=== PATIENT | female | born 2000 | race Caucasian/White ===

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

== ENCOUNTER 2018-02-13 19:09 | Inpatient (IN) | payer MEDICAID ==
[~2018-02-13] VITALS: Ht 157.5 cm; Wt 84.8 kg
[2018-02-13] MEDS ORDERED: D5 LR IV SOLUTION 1,000 ML IV ONE (19:11)
--- OUTSIDE RECORDS SUMMARY | 2018-02-13 19:13 | XMS REPORT ---
Author Author YOLANDE ESPINO [facility] Address [address] [place] [address] Care Team Providers Care Asbestos Wire Finisher Name Role Phone YOLANDE ESPINO Unavailable PROBLEMS Type Condition ICD9-CM Code TTU22-IV Code Onset Dates Condition Status SNOMED Code Problem Dysfunction of Eustachian tube 381.81 Active 57199252 Problem Unspecified otalgia 388.70 Active 99826499 Problem MENINGOCOCCAL DX V03.89 Active 30048375 Problem Other general medical examination for administrative purposes V70.3 Active 21273745 ALLERGIES No Information ENCOUNTERS Encounter Location Date Diagnosis [place] [id number] [place] [address] 64700- 3258 Feb, [facility] [id number] [place] [address] 73728- 4593 Feb, Third trimester Z33.1 and 39 weeks gestation of Z3A.39 [place] [id number] [place] [address] 67522- 7834 Jan, [place] [id number] [place] [address] 42436- 9277 Jan, Third trimester Z33.1 [place] [id number] [place] [address] 76044- 2380 Jan, Third trimester Z33.1 [place] [id number] [place] [address] 57228- 7656 13 Jan, 2018 Third trimester Z33.1 [place] [id number] [place] [address] 25681- 3597 06 Jan, 2018 Encounter for supervision of normal in third trimester Z34.93 [place] [id number] [place] [address] 18757- 4816 December, Encounter for supervision of normal first in third trimester Z34.03 [facility] [id number] [place] [address] 82741- 4844 December, Normal , first Z34.00 [facility] [address] [place] [address] 69641- 4756 December, Encounter for supervision of normal in third trimester Z34.93 and Encounter for immunization Z23 [facility] [id number] [place] [address] 65922- 6931 Nov, Normal , first Z34.00 [facility] [id number] [place] [address] 08424 -3818 Nov, Sore throat J02.9 and Acute nasopharyngitis J00 [facility] [id number] [place] [address] 23088- 2601 Oct, Second trimester Z34.92 [facility] [id number] [place] [address] 46353- 6159 Sep, Second trimester Z34.92 [facility] [id number] [place] [address] 64622- 2484 Sep, [facility] [id number] [place] [address] 27066- 1275 Aug, Normal , first Z34.00 [facility] [id number] [place] [address] 29784- 3652 Aug, Normal , first Z34.00 [facility] [id number] [place] [address] 62503- 4343 Jun, Normal , first Z34.00 [facility] [address] [address] Jun, [facility] [id number] [place] [address] 06142- 3260 Jun, [facility] [id number] [address] 8[address] Jun, [facility] [address] [address] Jan, Sports physical Z02.5 [facility] [address] [address] 1660 Nov, [facility] [id number] [address] 5532 Nov, [facility] [id number] [address] Nov, [facility] [id number] [address] 7218 Nov, [facility] [id number], [place] [address] 78[address] Nov, [facility] [id number], [place] [address] 0981 Nov, [facility] [id number] [address] 5983 Mar, [facility] [id number], [place] [address] 7368 Aug, IMMUNIZATIONS No Known Immunizations SOCIAL HISTORY Never Assessed REASON FOR VISIT PLAN OF CARE VITAL SIGNS MEDICATIONS Unknown Medications RESULTS No Results PROCEDURES No Known procedures INSTRUCTIONS MEDICATIONS ADMINISTERED No Known Medications
--- OUTSIDE RECORDS SUMMARY | 2018-02-13 19:13 | XMS REPORT ---
Author Author YOLANDE ESPINO [facility] Address [address] [place] [address] Care Team Providers Care Optician Apprentice Name Role Phone YOLANDE ESPINO Unavailable PROBLEMS Type Condition ICD9-CM Code NTP93-YF Code Onset Dates Condition Status SNOMED Code Problem Dysfunction of Eustachian tube 381.81 Active 24787876 Problem Unspecified otalgia 388.70 Active 36965304 Problem MENINGOCOCCAL DX V03.89 Active 35050297 Problem Other general medical examination for administrative purposes V70.3 Active 87977934 ALLERGIES No Known Allergies ENCOUNTERS Encounter Location Date Diagnosis [place] [id number] [place] [address] 03723- 5366 Jan, [place] [id number] [place] [address] 21116- 3378 Jan, [place] [id number] [place] [address] 96499- 2328 Jan, Third trimester Z33.1 [place] [address] [place] [address] 75073- 6708 Jan, Encounter for supervision of normal in third trimester Z34.93 [place] [address] [place] [address] 36993- 3966 December, Encounter for supervision of normal first in third trimester Z34.03 [place] [id number] [place] [address] 91933- 9013 December, Normal , first Z34.00 [place] [address] [place] [address] 32408- 9303 December, Encounter for supervision of normal in third trimester Z34.93 and Encounter for immunization Z23 [place] [address], [place] [address] 8[address] Nov, Normal , first Z34.00 [facility] [address], [place] [address] Nov, Sore throat J02.9 and Acute nasopharyngitis J00 [facility] [address] [place] [address] 44019- 8283 Oct, Second trimester Z34.92 [facility] [address], [place] [address] 7515 Sep, Second trimester Z34.92 [facility] [id number] [place] [address] 79325- 2155 Sep, [facility] [id number] [place] [address] 21934- 2754 Aug, Normal , first Z34.00 [facility] [address] [place] [address] 00319- 3124 Aug, Normal , first Z34.00 [facility] [id number] [place] [address] 96396- 7639 Jun, [facility] [address] [place] [address] 37201- 9605 Jun, Normal , first Z34.00 [facility] [address] [place] [address] 62680- 1949 Jun, [facility] [address] [place] [address] 37011- 3528 Jun, [facility] [address] [place] [address] 38607 -1586 Jan, Sports physical Z02.5 [facility] [address], [place] [address]- 3121 14 Nov, 2014 [facility] [id number] [place] [address] 982106- 3268 Nov, [facility] [address] [facility] [id number] [address]- 3310 Nov, [facility] [id number] [address]- 4422 Nov, [facility] [address] [facility] [id number] [address]109 Nov, [facility] [id number] [address]33 Nov, [facility] [address] [facility] [id number] [address]- 9167 Mar, [facility] [id number] [address]- 5544 Aug, IMMUNIZATIONS No Known Immunizations SOCIAL HISTORY Never Assessed REASON FOR VISIT OB f/u-4 wk- [facility] PLAN OF CARE Activity Details Follow Up 4 Weeks Reason: VITAL SIGNS Height 62 in 2017-08-08 Weight 143 lbs 2017-08-08 Temperature 98.0 degrees Fahrenheit 2017-08-08 Heart Rate 80 bpm 2017-08-08 Respiratory Rate 18 2017-08-08 BMI 26.155 kg/m2 2017-08-08 Blood pressure systolic 112 mmHg 2017-08-08 Blood pressure diastolic 68 mmHg 2017-08-08 MEDICATIONS Medication Instructions Dosage Frequency Start Date End Date Duration Status Adult Gummy/DHA/FA 0.4-25 MG Active Nasonex 50 mcg/actuation 1 sprays by Nasal route 2 times per day in each nostril Nov, Unknown RESULTS No Results PROCEDURES Procedure Date Ordered Result Body Site URINE-NO MICRO Aug 08, 2017 LAB NOT BILLED BY [facility] Aug 08, 2017 No Charge Aug 08, 2017 VENIPUNCT, ROUTINE* Aug 08, 2017 INSTRUCTIONS MEDICATIONS ADMINISTERED No Known Medications
--- OUTSIDE RECORDS SUMMARY | 2018-02-13 19:14 | XMS REPORT ---
Author Author YOLANDE ESPINO Organization [facility] Address [address] [place] [address] Care Team Providers Care Heel Seat Fitter Name Role Phone YOLANDE ESPINO Unavailable PROBLEMS Type Condition ICD9-CM Code OZL74-ML Code Onset Dates Condition Status SNOMED Code Problem Dysfunction of Eustachian tube 381.81 Active 57096450 Problem Unspecified otalgia 388.70 Active 62220872 Problem MENINGOCOCCAL DX V03.89 Active 70952080 Problem Other general medical examination for administrative purposes V70.3 Active 19067530 ALLERGIES No Known Allergies ENCOUNTERS Encounter Location Date Diagnosis [place] [address] [address] Jan, [place] [id number] [place] [address] 44191- 0858 December, Encounter for supervision of normal first in third trimester Z34.03 [place] [id number] [place] [address] 35202- 5668 December, Normal , first Z34.00 [place] [id number] [place] [address] 98221- 2137 December, Encounter for supervision of normal in third trimester Z34.93 and Encounter for immunization Z23 [facility] [id number] [place] [address] 68854- 2527 Nov, Normal , first Z34.00 [facility] [id number] [place] [address] 05677 -5894 Nov, Sore throat J02.9 and Acute nasopharyngitis J00 [place] [id number] [place] [address] 21502- 5529 Oct, Second trimester Z34.92 [facility] [address] [facility] [id number] [place] [address]- 0811 Sep, Second trimester Z34.92 [facility] [id number] [place] [address]- 3004 Sep, [facility] [id number] [place] [address]- 6965 Aug, Normal , first Z34.00 [facility] [address] [facility] [id number] [place] [address]- 9177 Aug, Normal , first Z34.00 [facility] [id number] [place] [address]- 6667 Jun, [facility] [id number] [place] [address]- 4763 Jun, Normal , first Z34.00 [facility] [address] [address]- 2487 Jun, [facility] [address] [address]- 9570 Jun, [facility] [address] [address] Jan, Sports physical Z02.5 [facility] [address] [address]- 8828 Nov, [facility] [address] [address]- 4449 Nov, [facility] [address] [address]- 5212 Nov, [facility] [address] [address]- 5753 Nov, [facility] [address] [address]- 2045 Nov, [facility] [address] [facility] [id number] [place] [address]- 0106 Nov, [facility] [address] [facility] [id number] [place] [address]- 0504 Mar, [facility] [address] [facility] [id number] [place] [address]- 7823 Aug, IMMUNIZATIONS No Known Immunizations SOCIAL HISTORY Never Assessed REASON FOR VISIT PLAN OF CARE VITAL SIGNS MEDICATIONS Unknown Medications RESULTS No Results PROCEDURES No Known procedures INSTRUCTIONS MEDICATIONS ADMINISTERED No Known Medications
--- OUTSIDE RECORDS SUMMARY | 2018-02-13 19:14 | XMS REPORT | Continuity of Care Document ---
Author Author [facility] Address Unknown Phone Unavailable Allergies Active Description Code Type Severity Reaction Onset Reported/Identified Relationship to Patient Clinical Status Yes No Known Drug Allergies [id number] Drug Allergy Mild N/A 10/29/2009 Medications There is no data. Problems Date Dx Coded Attending Type Code Diagnosis Diagnosed By 04/21/2008 034.0 STREP THROAT 04/21/2008 034.0 STREP THROAT 04/21/2008 WENDIE PARSON APRNYL A 034.0 STREP THROAT 03/17/2013 V03.89 MENINGOCOCCAL DX 03/17/2013 V70.3 SPORTS PHYSICAL 03/17/2013 EB GRIMALDO EVA A V03.89 MENINGOCOCCAL DX 03/17/2013 EB GRIMALDO EVA A V70.3 SPORTS PHYSICAL 11/12/2013 EB GRIMALDO EVA A 381.81 EUSTACHIAN TUBE DYSFUNCTION 11/12/2013 EB GRIMALDO EVA A 388.70 OTALGIA 07/13/2017 YOLANDE ESPINO MD, Ot Z34.01 ENCNTR FOR SUPRVSN OF NORMAL FIRST PREG, 07/13/2017 YOLANDE ESPINO MD, Ot Z3A.09 9 WEEKS GESTATION OF 07/27/2017 YOLANDE ESPINO MD, Ot Z34.01 ENCNTR FOR SUPRVSN OF NORMAL FIRST PREG, 07/27/2017 YOLANDE ESPINO MD, Ot Z3A.09 9 WEEKS GESTATION OF 09/26/2017 YOLANDE ESPINO MD, Ot Z36.89 ENCOUNTER FOR OTHER SPECIFIED 09/26/2017 YOLANDE ESPINO MD, Ot Z3A.18 18 WEEKS GESTATION OF 10/10/2017 YOLANDE ESPINO MD, Ot Z34.92 ENCNTR FOR SUPRVSN OF NORMAL PREG, UNSP, 10/10/2017 YOLANDE ESPINO MD, Ot Z3A.22 22 WEEKS GESTATION OF 10/10/2017 YOLANDE ESPINO MD, Ot Z34.92 ENCNTR FOR SUPRVSN OF NORMAL PREG, UNSP, 10/10/2017 YOLANDE ESPINO MD, Ot Z3A.22 22 WEEKS GESTATION OF 10/24/2017 YOLANDE ESPINO MD, Ot Z34.92 ENCNTR FOR SUPRVSN OF NORMAL PREG, UNSP, 10/24/2017 YOLANDE ESPINO MD, Ot Z3A.22 22 WEEKS GESTATION OF Procedures Code Description [place] [address] VISUAL ACUITY SCREEN 03/17/2013 Results Test Result Range CULTURE, URINE - 07/04/17 15:06 CULTURE, URINE, ROUTINE SEE NOTE NRG CULTURE, GENITAL - 07/04/17 15:06 CULTURE, GENITAL SEE NOTE NRG CBC - 08/08/17 16:38 WHITE BLOOD CELL COUNT 6.2 Thousand/uL 4.5-13.0 RED BLOOD CELL COUNT 4.11 Million/uL 3.80-5.10 HEMOGLOBIN 13.0 g/dL 11.5-15.3 HEMATOCRIT 37.1 % 34.0-46.0 MCV 90.3 fL 78.0-98.0 MCH 31.6 pg 25.0-35.0 MCHC 35.0 g/dL 31.0-36.0 RDW 12.5 % 11.0-15.0 PLATELET COUNT 218 Thousand/uL 140-400 MPV 11.7 fL 7.5-12.5 ABSOLUTE NEUTROPHILS 4464 cells/uL 7908-2206 ABSOLUTE LYMPHOCYTES 1141 cells/uL 5269-0421 ABSOLUTE MONOCYTES 477 cells/uL 200-900 ABSOLUTE EOSINOPHILS 99 cells/uL 15-500 ABSOLUTE BASOPHILS 19 cells/uL 0-200 NEUTROPHILS 72 % NRG LYMPHOCYTES 18.4 % NRG MONOCYTES 7.7 % NRG EOSINOPHILS 1.6 % NRG BASOPHILS 0.3 % NRG CBC - 10/31/17 15:40 WHITE BLOOD CELL COUNT 7.8 Thousand/uL 4.5-13.0 RED BLOOD CELL COUNT 3.48 Million/uL 3.80-5.10 HEMOGLOBIN 11.1 g/dL 11.5-15.3 HEMATOCRIT 32.6 % 34.0-46.0 MCV 93.7 fL 78.0-98.0 MCH 31.9 pg 25.0-35.0 MCHC 34.0 g/dL 31.0-36.0 RDW 12.0 % 11.0-15.0 PLATELET COUNT 209 Thousand/uL 140-400 MPV 11.1 fL 7.5-12.5 ABSOLUTE NEUTROPHILS 5772 cells/uL 9844-2550 ABSOLUTE LYMPHOCYTES 1365 cells/uL 0423-8645 ABSOLUTE MONOCYTES 585 cells/uL 200-900 ABSOLUTE EOSINOPHILS 70 cells/uL 15-500 ABSOLUTE BASOPHILS 8 cells/uL 0-200 NEUTROPHILS 74 % NRG LYMPHOCYTES 17.5 % NRG MONOCYTES 7.5 % NRG EOSINOPHILS 0.9 % NRG BASOPHILS 0.1 % NRG CULTURE, GROUP B STREP (VAGINAL) - 01/09/18 14:26 STREPTOCOCCUS, GROUP B CULTURE SEE NOTE NRG Encounters ACCT No. Visit Date/Time Discharge Status Pt. Type Provider Facility Loc./Unit Complaint [id number] 11/12/2013 13:42:00 11/12/2013 23:59:59 CLS Outpatient EVA PARSON APRN [id number] 04/21/2008 18:26:00 04/21/2008 23:59:59 CLS Outpatient [id number] 03/17/2013 09:17:00 Document Registration [id number] 08/21/2012 17:09:11 RECURRING [id number] 02/04/2018 14:20:00 02/04/2018 23:59:59 CLS Outpatient JUSTUS URIOSTEGUI LAC [facility] [id number] 01/09/2018 14:00:00 Document Registration [id number] 10/31/2017 14:45:00 Document Registration [id number] 08/08/2017 15:15:00 Document Registration [id number] 07/04/2017 14:30:00 Document Registration [id number] 10/09/2017 13:06:00 10/09/2017 23:59:59 CLS Outpatient YOLANDE ESPINO MD [facility] RAD Z34.92 SECOND TRIMESTER [id number] 09/11/2017 10:48:00 09/11/2017 23:59:59 CLS Outpatient YOLANDE ESPINO MD [facility] RAD Z34.00 [id number] 07/12/2017 13:15:00 07/12/2017 23:59:59 CLS Outpatient YOLANDE ESPINO MD [facility] RAD Z34.00 NORMAL , FIRST [id number] 05/27/2015 08:48:00 05/27/2015 23:59:59 CLS Outpatient DAWSON OKEEFE [facility] QUICK [id number] 02/13/2018 19:09:00 ACT Inpatient SRINIVAS OCHOA, YOLANDE Palomares [facility] LDRP INDUCTION
--- OUTSIDE RECORDS SUMMARY | 2018-02-13 19:14 | XMS REPORT ---
Author Author YOLANDE ESPINO Organization [facility] Address [address] [place] [address] Care Team Providers Care Forensic Psychiatrist Name Role Phone YOLANDE ESPINO Unavailable PROBLEMS Type Condition ICD9-CM Code SLS57-HB Code Onset Dates Condition Status SNOMED Code Problem Dysfunction of Eustachian tube 381.81 Active 40838680 Problem Unspecified otalgia 388.70 Active 52028183 Problem MENINGOCOCCAL DX V03.89 Active 97115694 Problem Other general medical examination for administrative purposes V70.3 Active 42039739 ALLERGIES No Information ENCOUNTERS Encounter Location Date Diagnosis [place] [address] [address] Jan, [place] [address] [place] [id number] [place] [address] December, Encounter for supervision of normal first in third trimester Z34.03 [place] [address] [address] December, Normal , first Z34.00 [facility] [address] [place] [id number] [place] [address] December, Encounter for supervision of normal in third trimester Z34.93 and Encounter for immunization Z23 [facility] [address] [place] [id number] [place] [address] Nov, Normal , first Z34.00 [facility] [address] [place] [id number] [place] [address] Nov, Sore throat J02.9 and Acute nasopharyngitis J00 [place] [address] [place] [id number] [place] [address] Oct, Second trimester Z34.92 [facility] [address] [facility] [place] [id number] [place] [address] Sep, Second trimester Z34.92 [facility] [address] [facility] [place] [id number] [place] [address] Sep, [facility] [id number] [place] [address] Aug, Normal , first Z34.00 [facility] [address] [facility] [place] [id number] [place] [address] Aug, Normal , first Z34.00 [facility] [id number] [place] [address] Jun, [facility] [address] [place] [id number] [place] [address] Jun, Normal , first Z34.00 [facility] [id number] [place] [address] Jun, [facility] [id number] [address] Jun, [facility] [id number] [address] Jan, Sports physical Z02.5 [facility] [id number] [address] Nov, [facility] [id number] [address] Nov, [facility] [id number] [address] Nov, [facility] [id number] [address] Nov, [facility] [id number] [address] Nov, [facility] [address] [facility] [place] [id number] [place] [address] Nov, [facility] [address] [facility] [place] [id number] [place] [address] Mar, [facility] [address] [facility] [place] [id number] [place] [address] Aug, IMMUNIZATIONS No Known Immunizations SOCIAL HISTORY Never Assessed REASON FOR VISIT PLAN OF CARE VITAL SIGNS MEDICATIONS Unknown Medications RESULTS No Results PROCEDURES No Known procedures INSTRUCTIONS MEDICATIONS ADMINISTERED No Known Medications
--- OUTSIDE RECORDS SUMMARY | 2018-02-13 19:14 | XMS REPORT ---
Author Author YOLANDE ESPINO Organization [facility] Address [address] [place] [address] Care Team Providers Care Pigment Making Supervisor Name Role Phone YOLANDE ESPINO Unavailable PROBLEMS Type Condition ICD9-CM Code TRH79-DH Code Onset Dates Condition Status SNOMED Code Problem Dysfunction of Eustachian tube 381.81 Active 98263317 Problem Unspecified otalgia 388.70 Active 39527230 Problem MENINGOCOCCAL DX V03.89 Active 94353592 Problem Other general medical examination for administrative purposes V70.3 Active 21657355 ALLERGIES No Information ENCOUNTERS Encounter Location Date Diagnosis [place] [address] [address] Jan, [place] [address] [place] [id number] [place] [address] December, Encounter for supervision of normal first in third trimester Z34.03 [place] [address] [address] December, Normal , first Z34.00 [facility] [address] [place] [id number] [place] [address] December, Encounter for supervision of normal in third trimester Z34.93 and Encounter for immunization Z23 [facility] [address] [place] [id number] [place] [address] Nov, Normal , first Z34.00 [facility] [address] [place] [id number] [place] [address] Nov, Sore throat J02.9 and Acute nasopharyngitis J00 [place] [address] [place] [id number] [place] [address] Oct, Second trimester Z34.92 [facility] [address] [facility] [id number] [place] [address] Sep, Second trimester Z34.92 [facility] [address] [facility] [id number] [place] [address] Sep, [facility] [id number] [place] [address] Aug, Normal , first Z34.00 [facility] [address] [facility] [id number] [place] [address] Aug, Normal , first Z34.00 [facility] [id number] [place] [address] Jun, [facility] [address] [place] [id number] [place] [address] Jun, Normal , first Z34.00 [facility] [id number] [place] [address] Jun, [facility] [id number] [address] Jun, [facility] [id number] [address] Jan, Sports physical Z02.5 [facility] [id number] [address] Nov, [facility] [id number] [address] Nov, [facility] [id number] [address] Nov, [facility] [id number] [address] Nov, [facility] [id number] [address] Nov, [facility] [address] [facility] [id number] [place] [address] Nov, [facility] [address] [facility] [id number] [place] [address] Mar, [facility] [address] [facility] [id number] [place] [address] Aug, IMMUNIZATIONS No Known Immunizations SOCIAL HISTORY Never Assessed REASON FOR VISIT PLAN OF CARE VITAL SIGNS MEDICATIONS Unknown Medications RESULTS No Results PROCEDURES No Known procedures INSTRUCTIONS MEDICATIONS ADMINISTERED No Known Medications
--- OUTSIDE RECORDS SUMMARY | 2018-02-13 19:14 | XMS REPORT ---
Author Author YOLANDE ESPINO Organization [facility] Address [address] [place] [address] Care Team Providers Care Um Nurse Name Role Phone YOLANDE ESPINO Unavailable PROBLEMS Type Condition ICD9-CM Code FVL89-XW Code Onset Dates Condition Status SNOMED Code Problem Dysfunction of Eustachian tube 381.81 Active 22653432 Problem Unspecified otalgia 388.70 Active 11125412 Problem MENINGOCOCCAL DX V03.89 Active 48878326 Problem Other general medical examination for administrative purposes V70.3 Active 96996060 ALLERGIES No Known Allergies ENCOUNTERS Encounter Location Date Diagnosis [place] [address] [address] Jan, [place] [address] [place] [id number] [place] [address] December, Encounter for supervision of normal first in third trimester Z34.03 [place] [address] [place] [id number] [place] [address] December, Normal , first Z34.00 [facility] [address] [place] [id number] [place] [address] December, Encounter for supervision of normal in third trimester Z34.93 and Encounter for immunization Z23 [facility] [address] [place] [id number] [place] [address] Nov, Normal , first Z34.00 [facility] [address] [place] [id number] [place] [address] Nov, Sore throat J02.9 and Acute nasopharyngitis J00 [place] [address] [place] [id number] [place] [address] Oct, Second trimester Z34.92 [facility] [address] [facility] [id number] [place] [address] Sep, Second trimester Z34.92 [facility] [id number] [place] [address] Sep, [facility] [id number] [place] [address] Aug, Normal , first Z34.00 [facility] [address] [facility] [id number] [place] [address] Aug, Normal , first Z34.00 [facility] [id number] [place] [address] Jun, [facility] [id number] [place] [address] Jun, Normal , first Z34.00 [facility] [id number], [place] [address] Jun, [facility] [id number] [address] Jun, [facility] [id number], [place] [address] Jan, Sports physical Z02.5 [facility] [id number], [place] [address] Nov, [facility] [id number], [place] [address] Nov, [facility] [id number], [place] [address] Nov, [facility] [id number], [place] [address] Nov, [facility] [id number], [place] [address]- [address] Nov, [facility] [address] [facility] [id number] [place] [address]- [address] Nov, [facility] [address] [facility] [id number] [place] [address]- [address] Mar, [facility] [address] [facility] [id number] [place] [address]- [address] Aug, IMMUNIZATIONS No Known Immunizations SOCIAL HISTORY Never Assessed REASON FOR VISIT OB-intake---ROQUE Abel, prasad hendrix run in patients family PLAN OF CARE Activity Details Follow Up 4 Weeks Reason: VITAL SIGNS Height 62 in 2017-07-04 Weight 138.7 lbs 2017-07-04 Temperature 98.8 degrees Fahrenheit 2017-07-04 Heart Rate 74 bpm 2017-07-04 Respiratory Rate 16 2017-07-04 BMI 25.369 kg/m2 2017-07-04 Blood pressure systolic 117 mmHg 2017-07-04 Blood pressure diastolic 72 mmHg 2017-07-04 MEDICATIONS Medication Instructions Dosage Frequency Start Date End Date Duration Status Nasonex 50 mcg/actuation 1 sprays by Nasal route 2 times per day in each nostril Nov, Not-Taking RESULTS No Results PROCEDURES Procedure Date Ordered Result Body Site URINALYSIS, AUTO, W/O SCOPE Jul 04, 2017 INSTRUCTIONS MEDICATIONS ADMINISTERED No Known Medications
[2018-02-13] MEDS: D5 LR IV SOLUTION 1,000 ML IV SCH (19:25)
[2018-02-13] MEDS ORDERED: LACTATED RINGERS 1,000 ML IV ONE (19:28)
[2018-02-13 19:30] VITALS: BP 126/75
[2018-02-13] MEDS ORDERED: MINERAL OIL CONCENTRATE 99.9% 15 ML UDC TOP PRN (19:45)
[2018-02-13] MEDS ORDERED: LACTATED RINGERS 1,000 ML IV SCH (19:45)
[2018-02-13] MEDS ORDERED: MISOPROSTOL 100 MCG (CYTOTEC) TAB PO NR (19:45)
[2018-02-13] MEDS ORDERED: BUTORPHANOL INJ 2 MG/ML (STADOL) VIAL IV PRN (19:45)
[2018-02-13 19:52] LABS: BASOPHILS % (AUTO) 0 % (0-10); EOSINOPHILS % (AUTO) 1 % (0-10); HEMATOCRIT 32 % (35-52); HEMOGLOBIN 11.1 G/DL (11.5-16.0); LYMPHOCYTES # (AUTO) 1.4 X 10^3 (1.0-4.0); LYMPHOCYTES % (AUTO) 17 % (12-44); MEAN CORPUSCULAR HEMOGLOBIN 30 PG (25-34); MEAN CORPUSCULAR HGB CONC 34 G/DL (32-36); MEAN CORPUSCULAR VOLUME 88 FL (80-99); MONOCYTES # (AUTO) 0.5 X 10^3 (0.0-1.0); MONOCYTES % (AUTO) 6 % (0-12); NEUTROPHILS # (AUTO) 6.2 X 10^3 (1.8-7.8); NEUTROPHILS % (AUTO) 77 % (42-75); PLATELET COUNT 215 10^3/uL (130-400); RED BLOOD COUNT 3.69 10^6/uL (4.35-5.85); WHITE BLOOD COUNT 8.1 10^3/uL (4.3-11.0)
[2018-02-13] MEDS ORDERED: PREN-142 PO (20:12)
[2018-02-13] MEDS ORDERED: ZOLPIDEM 5 MG (AMBIEN) TAB PO NR (20:30)
[2018-02-13 20:31] LABS: BILIRUBIN,URINE NEGATIVE (NEGATIVE); CLARITY,URINE SLIGHTLY CLOUDY; COLOR,URINE YELLOW; GLUCOSE, URINE (UA) NEGATIVE (NEGATIVE); KETONES,URINE NEGATIVE (NEGATIVE); LEUKOCYTE ESTERASE ,URINE 1+ (NEGATIVE); NITRITE,URINE NEGATIVE (NEGATIVE); PH,URINE 7 (5-9); PROTEIN,URINE 2+ (NEGATIVE); UROBILINOGEN,URINE NORMAL (NORMAL)
[2018-02-13 20:45] LABS: AMORPHOUS SEDIMENT,UR MOD AMOR PHOSPHATE /LPF
[2018-02-13 22:28] VITALS: BP 108/65
[2018-02-13] MEDS: CATHETER FLUSH 10 ML SYR IV SCH (23:56)
[2018-02-13] MEDS: MISOPROSTOL 100 MCG (CYTOTEC) TAB PO SCH (23:59)
[2018-02-14] VITALS (54 sets, daily range): BP systolic 105–146; BP diastolic 55–97
[2018-02-14] MEDS: D5 LR IV SOLUTION 1,000 ML IV SCH ×2 (03:08→11:11)
[2018-02-14] MEDS: MISOPROSTOL 100 MCG (CYTOTEC) TAB PO SCH (04:00)
[2018-02-14] MEDS: CATHETER FLUSH 10 ML SYR IV SCH (07:19)
[2018-02-14] MEDS ORDERED: LACTATED RINGERS 1,000 ML IV ONE ×3 (07:23→11:15)
[2018-02-14] MEDS ORDERED: OXYTOCIN/NORMAL SALINE 500 ML IV ONE (07:23)
[2018-02-14] MEDS: OXYTOCIN/NORMAL SALINE 500 ML IV SCH ×2 (07:25→15:58)
[2018-02-14] MEDS ORDERED: SUFENTA 0.6MCG/ML BUPIVA 0.125 100 ML ONE (07:55)
--- NOTE | 2018-02-14 08:00 | History & Physical-OB ---
OB - Chief Complaint & HPI Date/Time Date of Admission: Date of Admission: Feb 13, 2018 at 19:09 Time Seen by Provider: 07:10 Chief Complaint/History OB-Reason for Admission/Chief: Induction of Labor Hx : 1 Hx Para: 0 Expected Date of Delivery: Feb 09, 2018 Gestational Age in Weeks: 40 Gestational Age in Days: 4 Indication for induction: post dates Admission Nurse Assessment Rev: Yes History of Labs GBS negative Allergies and Home Medications Allergies Coded Allergies: No Known Drug Allergies (Unverified , 10/29/09) Home Medications Vit No.124/Iron/FA 1 Each Tablet, 1 EACH PO DAILY, (Reported) Patient Home Medication List Home Medication List Reviewed: Yes OB - History Hx of Present Care: Yes Ultrasounds: Normal mid trimester US Obstetrical Complications: None Medical Complications: None Delivery History Adverse Rxn to Tranfusion: No Patient Past Medical History no chronic medical problems Social History/Family History Recent Infectious Disease Expo: No Alcohol Use: Denies Use Recreational Drug Use: No Immunizations Hepatitis A: Yes Hepatitis B: Yes OB - Admission Exam Physical Exam Vitals: Vital Signs 02/14/18 04:00 Temp 97.6 Pulse 59 Resp 18 B/P (MAP) 116/67 (83) HEENT: Moist Membranes Heart: Rhythm Normal Lungs: Clear Abdomen: Gravid Cervical Dilatation: 1cm (on admission) Effacement: 50% Station: -3 Membranes: Intact Heart Rate: 130's Accelerations: Accelerations Present Short Term Variability: Present Fci Variability: Average (6-25) Contractions on Admission: >10 Minutes Apart Intensity: Mild Silver Scoring Tool (Modified) Dilation (cm): 1-2cm (1) Effacement (%): 31-51% (1) Descent/Station: -3 (0) Cervix Consistency: Medium(1) Cervix Position: Middle/Mid-Position (1) Silver Score: 4 Labs Laboratory Tests Test 02/13/18 19:25 02/13/18 20:00 Range/Units White Blood Count 8.1 4.3-11.0 10^3/uL Red Blood Count 3.69 L 4.35-5.85 10^6/uL Hemoglobin 11.1 L 11.5-16.0 G/DL Hematocrit 32 L 35-52 % Mean Corpuscular Volume 88 80-99 FL Mean Corpuscular Hemoglobin 30 25-34 PG Mean Corpuscular Hemoglobin Concent 34 32-36 G/DL Red Cell Distribution Width 13.0 10.0-14.5 % Platelet Count 215 130-400 10^3/uL Mean Platelet Volume 12.0 H 7.4-10.4 FL Neutrophils (%) (Auto) 77 H 42-75 % Lymphocytes (%) (Auto) 17 12-44 % Monocytes (%) (Auto) 6 0-12 % Eosinophils (%) (Auto) 1 0-10 % Basophils (%) (Auto) 0 0-10 % Neutrophils # (Auto) 6.2 1.8-7.8 X 10^3 Lymphocytes # (Auto) 1.4 1.0-4.0 X 10^3 Monocytes # (Auto) 0.5 0.0-1.0 X 10^3 Eosinophils # (Auto) 0.0 0.0-0.3 10^3/uL Basophils # (Auto) 0.0 0.0-0.1 10^3/uL Urine Color YELLOW Urine Clarity SLIGHTLY CLOUDY Urine pH 7 5-9 Urine Specific [place] 1.015 L 1.016-1.022 Urine Protein 2+ H NEGATIVE Urine Glucose (UA) NEGATIVE NEGATIVE Urine Ketones NEGATIVE NEGATIVE Urine Nitrite NEGATIVE NEGATIVE Urine Bilirubin NEGATIVE NEGATIVE Urine Urobilinogen NORMAL NORMAL MG/DL Urine Leukocyte Esterase 1+ H NEGATIVE Urine RBC (Auto) NEGATIVE NEGATIVE Urine RBC NONE /HPF Urine WBC 5-10 H /HPF Urine Squamous Epithelial Cells 2-5 /HPF Urine Crystals PRESENT H /LPF Urine Amorphous Sediment MOD EUGENE PHOSPHATE H /LPF Urine Bacteria NONE /HPF Urine Casts NONE /LPF Urine Mucus NEGATIVE /LPF Urine Culture Indicated NO OB - Assessment/Plan/Diagnosis Assessment Assessment: induction of labor Admission Dx 1. IUP at 40w4d gestation Admission Status: Inpatient Order (span 2 midnights) Reason for Inpatient Admission: Induction of labor Plan Plan: Induction (by cytotec) Induction Method: per Misoprostol Protocol Other Plan desires epidural in labor YOLANDE ESPINO MD Feb 14, 2018 08:00
[2018-02-14] MEDS ORDERED: fentaNYL INJECTION 100 MCG/2 ML AMP ONE (08:22)
[2018-02-14] MEDS ORDERED: BUPIVACAINE 0.25% 30 ML (SENSORCAINE) VIAL ONE (08:23)
[2018-02-14] MEDS ORDERED: NALOXONE 0.4 MG/ML 1 ML (NARCAN) VIAL IV PRN (09:00)
[2018-02-14] MEDS ORDERED: EPIDURAL (SUFENTA 0.6MCG/ML BUPIVA 0.125%) 100 ML BAG EPI SCH (09:00)
[2018-02-14] MEDS ORDERED: CATHETER FLUSH 10 ML SYR IV PRN (09:00)
[2018-02-14] MEDS ORDERED: MEPIVACAINE (CARBOCAINE) 2% 20 ML VIAL ONE (11:03)
[2018-02-14] MEDS ORDERED: MINERAL OIL CONCENTRATE 99.9% 15 ML UDC PO ONE (11:15)
[2018-02-14] MEDS ORDERED: MEPIVACAINE (CARBOCAINE) 2% 20 ML VIAL INJ ONE (11:15)
[2018-02-14] MEDS ORDERED: OXYTOCIN/NORMAL SALINE 500 ML IV SCH (16:24)
[2018-02-14] MEDS ORDERED: WITCH HAZEL(TUCKS) 40 EA JAR TOP PRN (16:30)
[2018-02-14] MEDS ORDERED: BENZOCAINE/MENTHOL (DERMOPLAST) 56 ML CAN TP PRN (16:30)
[2018-02-14] MEDS ORDERED: TETANUS,DIPTH,PERTUSS P/F (BOOSTRIX) 0.5 ML VIAL IM ONE (16:30)
[2018-02-14] MEDS ORDERED: MEASLES,MUMPS,RUBELLA 1 EA INJ SQ ONE (16:30)
[2018-02-14] MEDS ORDERED: DIBUCAINE (NUPERCAINAL) 1% OINT 30 GM TOP PRN (16:30)
[2018-02-14] MEDS ORDERED: HYDROcodone/APAP 5 MG/325 MG (LORTAB) TAB PO PRN (16:30)
--- NOTE | 2018-02-14 16:49 | OB Labor & Delivery Record ---
L&D History Date of Service Date of Service: Feb 14, 2018 History Expected Date of Delivery: Feb 09, 2018 Gestational Age in Weeks: 40 Hx : 1 Hx Para: 1 Complications Events: Routine care Operative Indications (Cesarea: N/A-Vaginal Delivery Intrapartal Events: None L&D Stage1 Stage One Onset of Labor - Date: Feb 14, 2018 Onset of Labor - Time: 03:00 Monitors and Tracing Monitor Mode: External Heart Rate: 120 Monitor Accelerations: Uniform Monitor Decelerations: Variable Station: -1 Correction Variability: Average (6-10) Short Term Variability: Present Presentation: Vertex Vital Signs VS - Last 72 Hours, by Label 02/13/18 02/13/18 02/14/18 02/14/18 19:30 22:28 00:00 04:00 Temp 97.3 98.1 97.6 Pulse 80 64 59 59 Resp 18 B/P (MAP) 126/75 (92) 108/65 (79) 113/67 (82) 116/67 (83) 02/14/18 02/14/18 02/14/18 02/14/18 07:30 07:45 08:00 08:15 Temp 98.0 Pulse 68 82 62 64 Resp 22 22 22 22 B/P (MAP) 120/80 (93) 139/96 (110) 137/73 (94) 137/85 (102) O2 Delivery Room Air Room Air Room Air Room Air 02/14/18 02/14/18 02/14/18 02/14/18 08:30 08:36 08:40 08:43 Pulse 73 82 83 88 Resp 22 22 22 22 B/P (MAP) 129/87 (101) 124/83 (97) 131/88 (102) 133/94 (107) Pulse Ox 97 99 99 98 O2 Delivery Room Air Room Air Room Air Room Air 02/14/18 02/14/18 02/14/18 02/14/18 08:46 08:52 08:54 08:57 Pulse 80 71 68 82 Resp 22 22 22 22 B/P (MAP) 122/65 (84) 119/65 (83) 117/61 (79) 116/64 (81) Pulse Ox 98 98 98 100 O2 Delivery Room Air Room Air Room Air Room Air 7/07/2302/14/18 02/14/18 02/14/18 09:00 09:03 09:06 09:10 Temp 97.3 Pulse 63 59 73 65 Resp B/P (MAP) 113/66 (82) 120/71 (87) 117/73 (88) 105/58 (74) Pulse Ox 100 99 99 99 O2 Delivery Room Air Room Air Room Air Non Rebreather O2 Flow Rate 15.00 02/14/18 02/14/18 02/14/18 02/14/18 09:28 09:40 09:58 10:10 Pulse 62 61 59 57 Resp B/P (MAP) 111/55 (73) 109/61 (77) 106/58 (74) 112/55 (74) Pulse Ox 100 100 100 100 O2 Delivery Non Rebreather Non Rebreather Non Rebreather Non Rebreather O2 Flow Rate 15.00 15.00 15.00 15.00 02/14/18 02/14/18 02/14/18 02/14/18 10:25 10:40 10:55 11:10 Temp 98.0 Pulse 67 86 84 71 Resp B/P (MAP) 109/59 (76) 120/62 (81) 119/62 (81) 110/57 (74) Pulse Ox 100 99 99 99 O2 Delivery Non Rebreather Non Rebreather Non Rebreather Room Air O2 Flow Rate 15.00 15.00 15.00 02/14/18 02/14/18 02/14/18 02/14/18 11:25 11:45 12:00 12:10 Pulse 75 82 91 86 Resp B/P (MAP) 114/70 (85) 113/66 (82) 112/57 (75) 120/70 (87) Pulse Ox 97 98 99 97 O2 Delivery Room Air Room Air Room Air Room Air 02/14/18 02/14/18 02/14/18 02/14/18 12:25 12:40 12:55 13:10 Temp 99.1 Pulse 72 75 108 111 Resp B/P (MAP) 115/65 (82) 107/56 (73) 120/73 (89) Pulse Ox 97 98 99 99 O2 Delivery Room Air Room Air Room Air Room Air 7/12/02/14/18 02/14/18 02/14/18 13:25 13:40 13:55 14:10 Temp 99.3 Pulse 105 102 81 89 Resp B/P (MAP) 118/70 (86) 124/64 (84) 105/59 (74) 117/66 (83) Pulse Ox 99 98 98 96 O2 Delivery Room Air Room Air Room Air Room Air 02/14/18 02/14/18 02/14/18 02/14/18 14:25 14:40 14:55 15:10 Pulse 89 101 116 120 Resp B/P (MAP) 124/70 (88) 133/91 (105) 133/67 (89) 123/59 (80) Pulse Ox 99 100 O2 Delivery Room Air Room Air Room Air Room Air 02/14/18 02/14/18 02/14/18 15:25 15:40 15:55 Temp 97.9 Pulse 97 134 Resp B/P (MAP) 133/71 (91) 128/62 (84) 146/97 (113) O2 Delivery Room Air Room Air Room Air Signs of Distress by FHT Signs of Distress no Fundal Ht/Cervical Dilatation Uterus Position: -2 Rupture of Membranes Spontaneous Ruture of Membrane: Yes Amniotic Membrane Rupture Time: 0258 Amniotic Membrane Fluid Desc.: Clear Amniotic Fluid Membrane Tests: Nitrazine Positive Vaginal Bleeding Description: None Induction/Anesthesia Epidural Cath Placement - Time: 0837 L&D Stage2 Stage Two Stage II Date: Feb 14, 2018 Stage II Time: 15:28 Monitors and Tracing Monitor Mode: Internal Heart Rate: 120 Monitor Accelerations: Uniform Monitor Decelerations: Variable Correction Variability: Average (6-10) Position: Left Occiput Anterior Presentation: Vertex Signs of Distress by FHT Signs of Distress no Cord Descript/Complications Cord Vessel Description: 3 Vessels Delivery Type Delivery Method: Spontaneous Vaginal Anterior Shoulder: Left Episiotomy/Perineal Laceration Laceraction(s)/Extensions: Yes Episiotomy Description: Midline Sutures Used: Vicryl Condition of Infant Delivery 1 minute Comment: 8 5 minute Comment: 9 Condition of Condition of : Living Exam: No Observed Abnormalities Resuscitation Resuscitation: N/A - Spontaneous Resp L&D Stage3 Stage Three Stage III Date: Feb 14, 2018 Stage III Time: 15:33 Pictocin Pitocin ml/hr: 125 Placenta Delivery Placenta Delivery: Spontaneous Delivery Summary Summary Estimated blood loss (mL): 200 Condition of Delivery Examined: Cervix Examined Post Hemorrhage: No Intervention Required none YOLANDE ESPINO MD Feb 14, 2018 16:49
[2018-02-14] MEDS: IBUPROFEN 600 MG (MOTRIN) TAB PO SCH (18:18)
[2018-02-15 00:40] VITALS: BP 122/66
[2018-02-15] MEDS: IBUPROFEN 600 MG (MOTRIN) TAB PO SCH ×3 (00:40→17:30)
[2018-02-15 04:00] VITALS: BP 126/76
[2018-02-15] MEDS: DOCUSATE SODIUM 100 MG (COLACE) CAP PO SCH ×2 (06:04→20:11)
[2018-02-15 06:52] LABS: BASOPHILS % (AUTO) 0 % (0-10); EOSINOPHILS # (AUTO) 0.1 10^3/uL (0.0-0.3); EOSINOPHILS % (AUTO) 1 % (0-10); HEMATOCRIT 26 % (35-52); HEMOGLOBIN 8.7 G/DL (11.5-16.0); LYMPHOCYTES # (AUTO) 1.9 X 10^3 (1.0-4.0); LYMPHOCYTES % (AUTO) 19 % (12-44); MEAN CORPUSCULAR HGB CONC 33 G/DL (32-36); MEAN CORPUSCULAR VOLUME 90 FL (80-99); MEAN PLATELET VOLUME 11.8 FL (7.4-10.4); MONOCYTES # (AUTO) 0.9 X 10^3 (0.0-1.0); MONOCYTES % (AUTO) 9 % (0-12); NEUTROPHILS # (AUTO) 7.1 X 10^3 (1.8-7.8); NEUTROPHILS % (AUTO) 71 % (42-75); PLATELET COUNT 178 10^3/uL (130-400); RED BLOOD COUNT 2.95 10^6/uL (4.35-5.85); RED CELL DISTRIBUTION WIDTH 13.1 % (10.0-14.5)
[2018-02-15 06:55] LABS: MEAN CORPUSCULAR HEMOGLOBIN 29 PG (25-34)
--- NOTE | 2018-02-15 07:47 | Progress Note (SOAP) ---
Subjective Subjective/Events-last exam No current complaints. Tolerating diet and walking. Review of Systems Date Seen by Provider: Feb 15, 2018 Time Seen by Provider: 07:15 Objective Exam Last Set of Vital Signs Vital Signs Date Time Temp Pulse Resp B/P (MAP) Pulse Ox O2 Delivery O2 Flow Rate FiO2 02/15/18 04:00 97.1 87 20 126/76 (93) 98 Room Air 02/14/18 10:55 15.00 Capillary Refill : I&O Intake and Output 02/15/18 00:00 Intake Total 4500 ml Balance 4500 ml Intake IV Total 4500 ml General: Alert, No Acute Distress Abdomen: Soft (with uterus firm) Results/Procedures Lab Laboratory Tests 02/15/18 06:37: White Blood Count 10.0, Red Blood Count 2.95L, Hemoglobin 8.7#L, Hematocrit 26L , Mean Corpuscular Volume 90, Mean Corpuscular Hemoglobin 29, Mean Corpuscular Hemoglobin Concent 33, Red Cell Distribution Width 13.1, Platelet Count 178, Mean Platelet Volume 11.8H, Neutrophils (%) (Auto) 71, Lymphocytes (%) (Auto) 19 , Monocytes (%) (Auto) 9, Eosinophils (%) (Auto) 1, Basophils (%) (Auto) 0, Neutrophils # (Auto) 7.1, Lymphocytes # (Auto) 1.9, Monocytes # (Auto) 0.9, Eosinophils # (Auto) 0.1, Basophils # (Auto) 0.0 Assessment/Plan Assessment/Plan Admission Dx 1. IUP at 40 weeks gestation Admission Status: Inpatient Order (span 2 midnights) Reason for Inpatient Admission: Delivery Assessment & Plan 1. IUP at 40 weeks -S/P day 1 -routine PP care orders -home in the am of 02/16 Clinical Quality Measures DVT/VTE Risk/Contraindication: Risk Factor Score Per Nursin RFS Level Per Nursing on Admit: 1=Low/No VTE PPX YOLANDE ESPINO MD Feb 15, 2018 07:47
[2018-02-15 08:00] VITALS: BP 98/60
--- NOTE | 2018-02-15 08:08 | Anesthesia-Regional Post-Op ---
Regional Patient Condition Mental Status: Alert, Oriented x3 Circulation: Same as Pre-Op Headache: Absent Sensation: Full Recovery Motor Block: Absent Post Op Complications Complications None Follow Up Care/Instructions Patient Instructions None needed. Anesthesia/Patient Condition Patient is doing well, no complaints, stable vital signs, no apparent adverse anesthesia problems. No complications reported per nursing. LAURENCE FRIAS CRNA Feb 15, 2018 08:08
[2018-02-15] MEDS: DOCUSATE CALCIUM 240 MG (SURFAK) CAP PO SCH (10:03)
[2018-02-15] MEDS: PRENATAL VITAMIN 1 EA TAB PO SCH (10:03)
[2018-02-15 12:00] VITALS: BP 130/87
[2018-02-15 17:30] VITALS: BP 110/75
[2018-02-15] MEDS: CATHETER FLUSH 10 ML SYR IV SCH ×2 (19:53→19:54)
[2018-02-15] MEDS: MISOPROSTOL 100 MCG (CYTOTEC) TAB PO SCH ×2 (19:55→19:56)
[2018-02-15] MEDS: D5 LR IV SOLUTION 1,000 ML IV SCH (19:55)
[2018-02-16] VITALS: BP 130/84
[2018-02-16 06:14] VITALS: BP 92/54
[2018-02-16] MEDS: IBUPROFEN 600 MG (MOTRIN) TAB PO SCH ×2 (06:14→12:11)
--- NOTE | 2018-02-16 07:36 | Discharge Summary ---
Diagnosis/Chief Complaint Date of Admission Feb 13, 2018 at 19:09 Date of Discharge February 16, 2018 Admission Diagnosis Admission Diagnosis 1. IUP at 40 weeks Discharge Diagnosis 1. IUP at 40 weeks Chief Complaint/HPI Chief Complaint/HPI 17 yo G1 now T1 who initially presented to L&D on 02/13 for induction of labor due to 40w4d gestation. She underwent cytotec induction. Discharge Summary-OBS Procedures 1. Epidural 2. 3. Repair of MLE Discharge Physical Examination Allergies: Coded Allergies: No Known Drug Allergies (Unverified , 10/29/09) Vitals & I&Os Vital Sign - Last 12Hours Date Time Temp Pulse Resp B/P (MAP) Pulse Ox O2 Delivery O2 Flow Rate FiO2 02/16/18 06:14 98.6 62 18 92/54 (67) 97 Room Air 02/14/18 10:55 15.00 General Appearance: No Acute Distress Respiratory: Clear to Auscultation Cardiovascular: Regular Rate Abdominal: Soft (with uterus firm) Hospital Course Patient was admitted during the evening of February 13, 2018 for Cytotec induction. She tolerated the Cytotec well. She underwent amniotomy in the morning of February 14, 2018. She went on to delivered February 14, 2018 by (see L&D summary) . Following she underwent routine PP care orders She had no complications during the remainder of her hospital stay. Her hemoglobin on February 15 was noted to be 8.7 compared to 11.1 on admission. She was noted to be without any dizziness and she ambulated without problems or difficulty. She had no shortness of breath or leg pain. Patient tolerated regular diet and she was felt ready for dismissal on February 16, 2018. All questions were answered and she will follow up in 6 weeks. Discharge Instructions to patient/family Please see electronic discharge instructions given to patient. Discharge Medications Reviewed and agree with Discharge Medication list on patient's Discharge Instruction sheet Clinical Quality Measures DVT/VTE Risk/Contraindication: Risk Factor Score Per Nursin RFS Level Per Nursing on Admit: 1=Low/No VTE PPX YOLANDE ESPINO MD Feb 16, 2018 07:36
[2018-02-16] MEDS ORDERED: IBUP-844 PO (07:47)
--- NOTE | 2018-02-16 07:50 | Discharge Inst-Women's Service ---
Discharge Inst-Women's Serv Depart Medication/Instructions New, Converted or Re-Newed RX: Transmitted to Pharmacy Consults/Follow Up Additional Follow Up: Yes (Dr Espino in 6 weeks at [facility]) Activity Driving Instructions: No Driving for 1 Week Nothing Inside Vagina: No [place] (for 6 weeks.) Diet Discharge Diet: Regular Diet Return to The Hospital For: as below Symptoms to Report to : Bleeding Excessive, Pain Increased, Fever Over 101 Degrees F, Vaginal Discharge Foul For Any Problems or Questions: Contact Your Physician, Go to Emergency Room YOLANDE ESPINO MD Feb 16, 2018 07:50
[2018-02-16 09:00] VITALS: BP 110/78
[2018-02-16] MEDS: DOCUSATE SODIUM 100 MG (COLACE) CAP PO SCH (09:00)
[2018-02-16] MEDS: DOCUSATE CALCIUM 240 MG (SURFAK) CAP PO SCH (09:17)
[2018-02-16] MEDS: PRENATAL VITAMIN 1 EA TAB PO SCH (09:17)
[2018-02-16 12:25] VITALS: BP 110/78
== END 2018-02-16 12:25 | disposition home or self-care (01) | DRG 775 ==
LOC: LDRP 19:09
PROVIDERS: ADMIT Family Medicine; ATTEND Family Medicine
PROC: 10E0XZZ Delivery of Products of Conception, External Approach (ICD-10-PCS; principal; 2018-02-14)
PROC: 0W8NXZZ Division of Female Perineum, External Approach (ICD-10-PCS; 2018-02-14)
DX: O48.0 Post-term pregnancy (principal); Z3A.40 40 weeks gestation of pregnancy; Z37.0 Single live birth
CPT/HCPCS: 36415; 81000; 85025; 86850; 86900; 86901

== ENCOUNTER → 2018-10-02 | Outpatient (CLI) | payer MEDICAID ==
[~2018-10-02] MED LIST: IBUP-844 PO; PREN-142 PO
--- NOTE | 2018-10-02 13:27 | Diagnostic Imaging Report ---
INDICATION: survey. TECHNIQUE: Multiple real-time grayscale images were obtained over the gravid uterus. COMPARISON: There are no prior studies available for comparison. FINDINGS: There is a single live fetus in cephalic presentation. heart motion was noted and a rate of 147 BPM was recorded. There were no abnormalities identified. However, the spine was not well imaged due to lie. It may prove worthwhile to have a short-term (4-6 week) followup ultrasound exam for further evaluation of the spine. The growth parameters are fairly uniform. The placenta is fundal and there is no previa. The amniotic fluid volume is within normal limits. The cervix was identified and measures 3.6 cm in length. Biometrical measurements are as follows: Biparietal 3.99 cm, age 18 weeks 1 days. Head circumference 15.00 cm, age 18 weeks 1 days. Abdominal circumference 12.04 cm, age 17 weeks 6 days. Femur length 2.23 cm, age 16 weeks 5 days. Sonographic estimate age: 17 weeks 5 days. Sonographic estimated date of delivery: 03/07/19. Estimated Weight: 191 gm (+/- 28 gm). LMP percentile: NA%. heart rate: 147 beats per minute. number: 1 of 1. IMPRESSION: 1. There is a single live fetus at approximately 17 weeks 5 days gestation +/-1 week. The EDC is March 07, 2019. 2. There were no abnormalities identified. However, the spine was not well visualized. Considerations, as above. 3. The growth parameters are fairly uniform. Dictated by: Dictated on workstation # [id number]
== END ==
LOC: RAD 11:46
PROVIDERS: ATTEND Family Medicine
DX: Z36.89 Encounter for other specified antenatal screening (principal); Z3A.17 17 weeks gestation of pregnancy
CPT/HCPCS: 76805

== ENCOUNTER → 2018-12-31 | Outpatient (CLI) | payer MEDICAID ==
--- NOTE | 2018-12-31 12:26 | Diagnostic Imaging Report ---
INDICATION: spine followup. TECHNIQUE: Multiple real-time grayscale images were obtained over the gravid uterus. COMPARISON: 10/02/2018. FINDINGS: There is a single live fetus in a cephalic presentation. heart rate was recorded 129 beats per minute. Placenta is fundal. Amniotic fluid volume is within normal limits. spine is unremarkable on today's study. IMPRESSION: Unremarkable followup obstetrical ultrasound. Dictated by: Dictated on workstation # [id number]
== END ==
LOC: RAD 10:30
PROVIDERS: ATTEND Family Medicine
DX: Z36.89 Encounter for other specified antenatal screening (principal); Z3A.00 Weeks of gestation of pregnancy not specified
CPT/HCPCS: 76816

== ENCOUNTER 2019-02-28 02:32 | Inpatient (IN) | payer MEDICAID ==
[2019-02-28] VITALS (43 sets, daily range): BP systolic 90–131; BP diastolic 50–81
[~2019-02-28] VITALS: Ht 157.5 cm; Wt 85.7 kg
--- NOTE | 2019-02-28 06:20 | NUR ---
EMIR BARRAGAN presented to unit via ambulatory from ED, accompanied by family, with c/o INDUCTION. EMIR BARRAGAN weighed, gowned, voided, and to bed. EFHM and TOCO applied, VS taken. EMIR BARRAGAN oriented to bed controls, call light, TV, heat, and A/C controls.
--- NOTE | 2019-02-28 07:01 | History & Physical-OB ---
OB - Chief Complaint & HPI Date/Time Date of Admission: Date of Admission: Feb 28, 2019 at 06:09 Date seen by a Provider: Feb 28, 2019 Time Seen by a Provider: 07:05 Chief Complaint/History OB-Reason for Admission/Chief: Induction of Labor Hx : 2 Hx Para: 1 Expected Date of Delivery: Mar 07, 2019 Gestational Age in Weeks: 39 Admission Nurse Assessment Rev: Yes History of Labs GBS negative Allergies and Home Medications Allergies Coded Allergies: No Known Drug Allergies (Unverified , 02/28/19) Home Medications Ibuprofen 600 Mg Tablet, 600 MG PO Q6H Prescribed by: YOLANDE ESPINO on 02/16/18 0747 Vit No.124/Iron/FA 1 Each Tablet, 1 EACH PO DAILY, (Reported) Patient Home Medication List Home Medication List Reviewed: Yes OB - History Hx of Present Care: Yes Ultrasounds: Normal mid trimester US Obstetrical Complications: None Medical Complications: None Delivery History Adverse Rxn to Tranfusion: No Patient Past Medical History no chronic medical problems Immunizations Hepatitis A: Yes Hepatitis B: Yes OB - Admission Exam Physical Exam HEENT: Moist Membranes Heart: Rhythm Normal Lungs: Clear Abdomen: Gravid Cervical Dilatation: 2cm Effacement: 50% Station: -3 Membranes: Intact Heart Rate: 140's Accelerations: Accelerations Present Short Term Variability: Present Silver Scoring Tool (Modified) Dilation (cm): 1-2cm (1) Effacement (%): 31-51% (1) Descent/Station: -3 (0) Cervix Consistency: Medium(1) Cervix Position: Middle/Mid-Position (1) Add 1 point for: Each previous vaginal delivery (1) Silver Score: 5 OB - Assessment/Plan/Diagnosis Assessment Assessment: induction of labor Admission Dx 1. IUP at term 39 weeks. Admission Status: Inpatient Order (span 2 midnights) Reason for Inpatient Admission: induction of labor Plan Plan: Induction Induction Method: AROM Other Plan -epidural -YOLANDE Navarro MD Feb 28, 2019 07:01
[2019-02-28] MEDS ORDERED: D5 LR IV SOLUTION 1,000 ML IV SCH (07:45)
[2019-02-28] MEDS ORDERED: OXYTOCIN/NORMAL SALINE 500 ML IV SCH ×2 (07:45→14:56)
[2019-02-28 07:59] LABS: BASOPHILS % (AUTO) 0 % (0-10); EOSINOPHILS # (AUTO) 0.1 10^3/uL (0.0-0.3); EOSINOPHILS % (AUTO) 1 % (0-10); HEMATOCRIT 32 % (35-52); HEMOGLOBIN 10.4 G/DL (11.5-16.0); LYMPHOCYTES # (AUTO) 1.6 X 10^3 (1.0-4.0); LYMPHOCYTES % (AUTO) 22 % (12-44); MEAN CORPUSCULAR HEMOGLOBIN 28 PG (25-34); MEAN CORPUSCULAR HGB CONC 33 G/DL (32-36); MEAN CORPUSCULAR VOLUME 86 FL (80-99); MEAN PLATELET VOLUME 11.5 FL (7.4-10.4); MONOCYTES # (AUTO) 0.5 X 10^3 (0.0-1.0); MONOCYTES % (AUTO) 7 % (0-12); NEUTROPHILS # (AUTO) 4.8 X 10^3 (1.8-7.8); NEUTROPHILS % (AUTO) 69 % (42-75); PLATELET COUNT 191 10^3/uL (130-400); RED CELL DISTRIBUTION WIDTH 14.3 % (10.0-14.5)
[2019-02-28] MEDS ORDERED: LACTATED RINGERS 1,000 ML IV ONE ×3 (07:59→11:59)
[2019-02-28] MEDS ORDERED: SUFENTA 0.6MCG/ML BUPIVA 0.125 100 ML ONE (09:01)
[2019-02-28] MEDS ORDERED: fentaNYL INJECTION 100 MCG/2 ML AMP ONE (09:09)
[2019-02-28] MEDS ORDERED: BUPIVACAINE 0.25% 30 ML (SENSORCAINE) VIAL ONE (09:09)
--- OUTSIDE RECORDS SUMMARY | 2019-02-28 10:05 | XMS REPORT ---
Author Author Migration, Doctor Organization [facility] Address Unknown Phone Unavailable Care Team Providers Care Tool Programmer Name Role Phone Migration, Doctor Unavailable Unavailable PROBLEMS Type Condition ICD9-CM Code EMP90-LR Code Onset Dates Condition Status SNOMED Code Problem Unspecified otalgia 388.70 Active 28109415 Problem Dysfunction of Eustachian tube 381.81 Active 96989377 Problem Other general medical examination for administrative purposes V70.3 Active 76014423 Problem MENINGOCOCCAL DX V03.89 Active 67727815 ALLERGIES No Information ENCOUNTERS Encounter Location Date Diagnosis [place] [id number] [place] [address] Mar, Encounter for routine follow-up Z39.2 [place] [address] [place] [id number] [place] [address] Feb, Third trimester Z33.1 [place] [address] [id number] [place] [address] Feb, Third trimester Z33.1 and 39 weeks gestation of Z3A.39 [place] [address] [place] [address] Jan, [facility] [id number] [place] [address] Jan, Third trimester Z33.1 [place] [address] [place] [address] Jan, Third trimester Z33.1 [place] [address] [id number] [place] [address] Jan, Third trimester Z33.1 [place] [address] [id number] [place] [address] 06 Jan, 2018 Encounter for supervision of normal in third trimester Z34.93 [facility] [address] [place] [address] December, Encounter for supervision of normal first in third trimester Z34.03 [facility] [id number] [place] [address] December, Normal , first Z34.00 [facility] [id number] [place] [address] December, Encounter for supervision of normal in third trimester Z34.93 and Encounter for immunization Z23 [facility] [id number] [place] [address] Nov, Normal , first Z34.00 [facility] [id number] [place] [address] Nov, Sore throat J02.9 and Acute nasopharyngitis J00 [facility] [id number] [place] [address] Oct, Second trimester Z34.92 [facility] [id number] [place] [address] Sep, Second trimester Z34.92 [facility] [id number] [place] [address] Sep, [facility] [id number] [place] [address] Aug, Normal , first Z34.00 [facility] [id number] [place] [address] Aug, Normal , first Z34.00 [facility] [id number] [place] [address] Jun, [facility] [id number] [place] [address] Jun, Normal , first Z34.00 [facility] [address] [facility] [id number] [address] Jun, [facility] [address] [facility] [id number], [place] [address] Jun, [facility] [address] [facility] [id number], [place] [address] Jan, Sports physical Z02.5 [facility] [address] [address] Nov, [facility] [address] [facility] [id number], [place] [address] Nov, [facility] [address] [address] Nov, [facility] [address] [address] Nov, [facility] [address] [address] Nov, [facility] [address] [place] [id number] [address] Nov, [facility] [address] [address] Mar, [facility] [address] [place] [address] [id number], [place] [address] Aug, IMMUNIZATIONS No Known Immunizations SOCIAL HISTORY Never Assessed REASON FOR VISIT [facility] PLAN OF CARE VITAL SIGNS MEDICATIONS Unknown Medications RESULTS No Results PROCEDURES No Known procedures INSTRUCTIONS MEDICATIONS ADMINISTERED No Known Medications
--- OUTSIDE RECORDS SUMMARY | 2019-02-28 10:05 | XMS REPORT ---
Author Author YOLANDE ESPINO [facility] Address [address] [place] [address] Care Team Providers Care Weather Strip Mechanic Name Role Phone YOLANDE ESPINO Unavailable PROBLEMS Type Condition ICD9-CM Code CWD02-MR Code Onset Dates Condition Status SNOMED Code Problem Dysfunction of Eustachian tube 381.81 Active 23661849 Problem Unspecified otalgia 388.70 Active 39223594 Problem MENINGOCOCCAL DX V03.89 Active 81116674 Problem Other general medical examination for administrative purposes V70.3 Active 34928747 ALLERGIES No Known Allergies ENCOUNTERS Encounter Location Date Diagnosis [place] [address] [place] [address] Mar, Encounter for routine follow-up Z39.2 [place] [address] [place] [address] Feb, Third trimester Z33.1 [place] [address] [place] [address] 02 Feb, 2018 Third trimester Z33.1 and 39 weeks gestation of Z3A.39 [place] [address] [place] [address] Jan, [place] [address] [place] [address] Jan, Third trimester Z33.1 [place] [address] [place] [address] Jan, Third trimester Z33.1 [place] [address] [place] [address] Jan, Third trimester Z33.1 [place] [address] [address] Jan, Encounter for supervision of normal in third trimester Z34.93 [facility] [address] [place] [address] December, Encounter for supervision of normal first in third trimester Z34.03 [facility] [address] [place] [address] December, Normal , first Z34.00 [facility] [address] [place] [id number] [place] [address] December, Encounter for supervision of normal in third trimester Z34.93 and Encounter for immunization Z23 [facility] [address] [place] [address] Nov, Normal , first Z34.[address] [facility] [id number] [place] [address] Nov, Sore throat J02.9 and Acute nasopharyngitis J00 [facility] [id number] [place] [address] Oct, Second trimester Z34.92 [facility] [address] [place] [address] Sep, Second trimester Z34.92 [facility] [address] [address] Sep, [facility] [id number] [place] [address] Aug, Normal , first Z34.00 [facility] [id number] [place] [address] Aug, Normal , first Z34.00 [facility] [address] [place] [address] Jun, Normal , first Z34.00 [facility] [address], [place] [address] Jun, [facility] [address] [place] [address] Jun, [facility] [address] [id number] [address] Jun, [facility] [id number] [place] [address] Jan, Sports physical Z02.5 [facility] [id number] [place] [address] Nov, [facility] [id number] [place] [address] Nov, [facility] [id number] [place] [address] Nov, [facility] [id number] [place] [address] Nov, [facility] [id number] [place] [address] Nov, [facility] [id number] [place] [address] Nov, [facility] [id number] [place] [address] Mar, [facility] [id number] [place] [address] Aug, IMMUNIZATIONS No Known Immunizations SOCIAL HISTORY Never Assessed REASON FOR VISIT OB 1wk f/u, lost mucous plug two days ago, no regular contractions-AHarrymanRN PLAN OF CARE Activity Details Follow Up PRN Reason: VITAL SIGNS Height 62 in 2018-02-13 Weight 185.2 lbs 2018-02-13 Temperature 97.3 degrees Fahrenheit 2018-02-13 Heart Rate 78 bpm 2018-02-13 Respiratory Rate 20 2018-02-13 BMI 33.874 kg/m2 2018-02-13 Blood pressure systolic 118 mmHg 2018-02-13 Blood pressure diastolic 78 mmHg 2018-02-13 MEDICATIONS Medication Instructions Dosage Frequency Start Date End Date Duration Status Nasonex 50 mcg/actuation 1 sprays by Nasal route 2 times per day in each nostril Nov, Not-Taking Tums 500 MG Orally Once a day 1 tablet 24h Active Melatonin 3 MG Orally Once a day 1 tablet at bedtime as needed with food 24h Active Adult Gummy/DHA/FA 0.4-25 MG Active RESULTS Name Result Date Reference Range UA OB DIP (IN HOUSE) 2018-02-13 Glucose neg Protein 1+ PROCEDURES Procedure Date Ordered Result Body Site URINE-NO MICRO February 13, 2018 INSTRUCTIONS MEDICATIONS ADMINISTERED No Known Medications
--- OUTSIDE RECORDS SUMMARY | 2019-02-28 10:05 | XMS REPORT ---
Author Author Migration, Doctor Organization [facility] Address Unknown Phone Unavailable Care Team Providers Care Healthcare Advisory Services Manager Name Role Phone Migration, Doctor Unavailable Unavailable PROBLEMS Type Condition ICD9-CM Code CUQ80-OR Code Onset Dates Condition Status SNOMED Code Problem Unspecified otalgia 388.70 Active 63059777 Problem Dysfunction of Eustachian tube 381.81 Active 37918771 Problem Other general medical examination for administrative purposes V70.3 Active 15833949 Problem MENINGOCOCCAL DX V03.89 Active 77474568 ALLERGIES No Information ENCOUNTERS Encounter Location Date Diagnosis [place] [address] [place] [address] Mar, Encounter for routine follow-up Z39.2 [place] [address] [place] [id number] [place] [address] Feb, Third trimester Z33.1 [place] [address] [place] [id number] [place] [address] Feb, Third trimester Z33.1 and 39 weeks gestation of Z3A.39 [place] [address] [place] [address] Jan, [facility] [address] [place] [id number] [place] [address] Jan, Third trimester Z33.1 [place] [address] [place] [address] Jan, Third trimester Z33.1 [place] [address] [place] [id number] [place] [address] Jan, Third trimester Z33.1 [place] [address] [place] [id number] [place] [address] Jan, Encounter for supervision of normal in third trimester Z34.93 [facility] [address] [place] [address] December, Encounter for supervision of normal first in third trimester Z34.03 [facility] [address] [place] [id number] [place] [address] December, Normal , first Z34.00 [facility] [address] [place] [id number] [place] [address] December, Encounter for supervision of normal in third trimester Z34.93 and Encounter for immunization Z23 [facility] [address] [place] [id number] [place] [address] Nov, Normal , first Z34.00 [facility] [address] [place] [address] [id number] [place] [address] Nov, Sore throat J02.9 and Acute nasopharyngitis J00 [facility] [address] [place] [id number] [place] [address] Oct, Second trimester Z34.92 [facility] [address] [place] [address] [id number] [place] [address] Sep, Second trimester Z34.92 [facility] [address] [place] [id number] [place] [address] Sep, [facility] [address] [place] [id number] [place] [address] Aug, Normal , first Z34.00 [facility] [address] [place] [id number] [place] [address] Aug, Normal , first Z34.00 [facility] [address] [place] [id number] [place] [address] Jun, [facility] [address] [place] [address] [id number] [place] [address] Jun, Normal , first Z34.00 [facility] [address] [facility] [id number], [place] [address] Jun, [facility] [address], [place] [address] Jun, [facility] [address] [facility] [id number], [place] [address] Jan, Sports physical Z02.5 [facility] [address], [place] [address] Nov, [facility] [address] [facility] [id number], [place] [address] Nov, [facility] [address], [place] [address] Nov, [facility] [address], [place] [address] Nov, [facility] [address], [place] [address] Nov, [facility] [address], [place] [address] Nov, [facility] [address], [place] [address] Mar, [facility] [address] [place] [id number], [place] [address] Aug, IMMUNIZATIONS No Known Immunizations SOCIAL HISTORY Never Assessed REASON FOR VISIT [facility] [place] OF CARE VITAL SIGNS MEDICATIONS Medication Instructions Dosage Frequency Start Date End Date Duration Status Nasonex 50 mcg/actuation 1 sprays by Nasal route 2 times per day in each nostril Nov, Active RESULTS No Results PROCEDURES No Known procedures INSTRUCTIONS MEDICATIONS ADMINISTERED No Known Medications
--- OUTSIDE RECORDS SUMMARY | 2019-02-28 10:05 | XMS REPORT ---
Author Author YOLANDE ESPINO [facility] Address [address] [place] [address] Care Team Providers Care Head Rose Grower Name Role Phone YOLANDE ESPINO Unavailable PROBLEMS Type Condition ICD9-CM Code ACA42-GK Code Onset Dates Condition Status SNOMED Code Problem Dysfunction of Eustachian tube 381.81 Active 53332075 Problem Unspecified otalgia 388.70 Active 37577485 Problem MENINGOCOCCAL DX V03.89 Active 22269502 Problem Other general medical examination for administrative purposes V70.3 Active 40140052 ALLERGIES No Known Allergies ENCOUNTERS Encounter Location Date Diagnosis [place] [address] [place] [address] Mar, Encounter for routine follow-up Z39.2 [place] [address] [place] [address] Feb, Third trimester Z33.1 [place] [address] [place] [address] 02 Feb, 2018 Third trimester Z33.1 and 39 weeks gestation of Z3A.39 [place] [address] [place] [address] Jan, [place] [address] [place] [address] Jan, Third trimester Z33.1 [place] [address] [place] [address] Jan, Third trimester Z33.1 [place] [address] [place] [address] Jan, Third trimester Z33.1 [place] [address] [address] Jan, Encounter for supervision of normal in third trimester Z34.93 [facility] [address] [place] [id number] [place] [address] December, Encounter for supervision of normal first in third trimester Z34.03 [facility] [id number] [place] [address] December, Normal , first Z34.00 [facility] [id number] [place] [address] December, Encounter for supervision of normal in third trimester Z34.93 and Encounter for immunization Z23 [facility] [id number] [place] [address] Nov, Normal , first Z34.00 [facility] [id number] [place] [address] Nov, Sore throat J02.9 and Acute nasopharyngitis J00 [facility] [id number] [place] [address] Oct, Second trimester Z34.92 [facility] [address] [place] [address] Sep, Second trimester Z34.92 [facility] [address] [place] [address] Sep, [facility] [id number] [place] [address] Aug, Normal , first Z34.00 [facility] [id number] [place] [address] Aug, Normal , first Z34.00 [facility] [address] [place] [address] Jun, [facility] [id number] [place] [address] Jun, Normal , first Z34.00 [facility] [id number] [place] [address] Jun, [facility] [id number] [place] [address] Jun, [facility] [id number] [place] [address] Jan, Sports physical Z02.5 [facility] [id number] [place] [address] Nov, [facility] [id number] [place] [address] Nov, [facility] [id number] [place] [address] Nov, [facility] [id number] [place] [address] Nov, [facility] [id number] [place] [address] Nov, [facility] [id number] [place] [address] Nov, [facility] [id number] [place] [address] Mar, [facility] [id number] [place] [address] Aug, IMMUNIZATIONS No Known Immunizations SOCIAL HISTORY Never Assessed REASON FOR VISIT OB---tcuppettRn PLAN OF CARE Activity Details Follow Up prn Reason: VITAL SIGNS Height 62 in 2018-03-27 Weight 168.7 lbs 2018-03-27 Temperature 98.5 degrees Fahrenheit 2018-03-27 Heart Rate 76 bpm 2018-03-27 Respiratory Rate 18 2018-03-27 BMI 30.85 kg/m2 2018-03-27 Blood pressure systolic 112 mmHg 2018-03-27 Blood pressure diastolic 70 mmHg 2018-03-27 MEDICATIONS Medication Instructions Dosage Frequency Start Date End Date Duration Status Tums 500 MG Orally Once a day 1 tablet 24h Not-Taking Nasonex 50 mcg/actuation 1 sprays by Nasal route 2 times per day in each nostril Nov, Not-Taking Melatonin 3 MG Orally Once a day 1 tablet at bedtime as needed with food 24h Not-Taking Adult Gummy/DHA/FA 0.4-25 MG Active RESULTS No Results PROCEDURES No Known procedures INSTRUCTIONS MEDICATIONS ADMINISTERED No Known Medications
--- OUTSIDE RECORDS SUMMARY | 2019-02-28 10:06 | XMS REPORT ---
Author Author YOLANDE ESPINO [facility] Address [address] [place] [address] Care Team Providers Care Etch Operator Semiconductor Wafers Name Role Phone YOLANDE ESPINO Unavailable PROBLEMS Type Condition ICD9-CM Code AAD89-XU Code Onset Dates Condition Status SNOMED Code Problem Dysfunction of Eustachian tube 381.81 Active 75842778 Problem Unspecified otalgia 388.70 Active 86646082 Problem MENINGOCOCCAL DX V03.89 Active 98929186 Problem Other general medical examination for administrative purposes V70.3 Active 94581409 ALLERGIES No Known Allergies ENCOUNTERS Encounter Location Date Diagnosis [place] [address] [place] [address] Mar, Encounter for routine follow-up Z39.2 [place] [address] [place] [address] Feb, Third trimester Z33.1 [place] [address] [place] [address] 02 Feb, 2018 Third trimester Z33.1 and 39 weeks gestation of Z3A.39 [place] [address] [place] [address] Jan, [place] [address] [place] [address] Jan, Third trimester Z33.1 [place] [address] [place] [address] Jan, Third trimester Z33.1 [place] [address] [place] [address] Jan, Third trimester Z33.1 [place] [address] [address] Jan, Encounter for supervision of normal in third trimester Z34.93 [facility] [address] [place] [address] [id number] [place] [address] December, Encounter for supervision of normal first in third trimester Z34.03 [facility] [address] [place] [id number] [place] [address] December, Normal , first Z34.00 [facility] [address] [place] [id number] [place] [address] December, Encounter for supervision of normal in third trimester Z34.93 and Encounter for immunization Z23 [facility] [address] [place] [address] [id number] [place] [address] Nov, Normal , first Z34.00 [facility] [id number] [place] [address] Nov, Sore throat J02.9 and Acute nasopharyngitis J00 [facility] [address] [address] [id number] [place] [address] Oct, Second trimester Z34.92 [facility] [address] [place] [address] Sep, Second trimester Z34.92 [facility] [address] [place] [address] Sep, [facility] [address] [place] [address] [id number] [place] [address] Aug, Normal , first Z34.00 [facility] [address] [address] [id number] [place] [address] Aug, Normal , first Z34.00 [facility] [address] [place] [address] Jun, [facility] [address] [place] [address] [id number] [place] [address] Jun, Normal , first Z34.00 [facility] [address] [place] [address] [id number] [place] [address] Jun, [facility] [address] [place] [id number] [place] [address] Jun, [facility] [address] [place] [id number] [place] [address] Jan, Sports physical Z02.5 [facility] [address] [address] [id number] [place] [address] Nov, [facility] [address] [address] Nov, [facility] [address] [place] [id number] [place] [address] Nov, [facility] [address] [address] [id number] [place] [address] Nov, [facility] [address] [id number] [place] [address] Nov, [facility] [id number] [place] [address] Nov, [facility] [id number] [place] [address] Mar, [facility] [address] [id number] [place] [address] Aug, IMMUNIZATIONS No Known Immunizations SOCIAL HISTORY Never Assessed REASON FOR VISIT OB f/u 2 wk -awoods PLAN OF CARE Activity Details Follow Up 1 Week Reason: VITAL SIGNS Height 62 in 2018-01-09 Weight 175.4 lbs 2018-01-09 Temperature 98.4 degrees Fahrenheit 2018-01-09 Heart Rate 64 bpm 2018-01-09 Respiratory Rate 20 2018-01-09 BMI 32.081 kg/m2 2018-01-09 Blood pressure systolic 114 mmHg 2018-01-09 Blood pressure diastolic 62 mmHg 2018-01-09 MEDICATIONS Medication Instructions Dosage Frequency Start Date End Date Duration Status Nasonex 50 mcg/actuation 1 sprays by Nasal route 2 times per day in each nostril Nov, Not-Taking Tums 500 MG Orally Once a day 1 tablet 24h Active Melatonin 3 MG Orally Once a day 1 tablet at bedtime as needed with food 24h Active Adult Gummy/DHA/FA 0.4-25 MG Active RESULTS No Results PROCEDURES Procedure Date Ordered Result Body Site URINE-NO MICRO January 09, 2018 STREP CULTURE January 09, 2018 INSTRUCTIONS MEDICATIONS ADMINISTERED No Known Medications
--- OUTSIDE RECORDS SUMMARY | 2019-02-28 10:06 | XMS REPORT ---
Author Author YOLANDE ESPINO [facility] Address [address] [place] [address] Care Team Providers Care Cook Supervisor Name Role Phone YOLANDE ESPINO Unavailable PROBLEMS Type Condition ICD9-CM Code WAU97-ZJ Code Onset Dates Condition Status SNOMED Code Problem Dysfunction of Eustachian tube 381.81 Active 48870026 Problem Unspecified otalgia 388.70 Active 19857125 Problem MENINGOCOCCAL DX V03.89 Active 54533208 Problem Other general medical examination for administrative purposes V70.3 Active 49153989 ALLERGIES No Known Allergies ENCOUNTERS Encounter Location Date Diagnosis [place] [address] [place] [address] Mar, Encounter for routine follow-up Z39.2 [place] [address] [place] [address] Feb, Third trimester Z33.1 [place] [address] [place] [address] Feb, Third trimester Z33.1 and 39 weeks gestation of Z3A.39 [place] [address] [place] [address] Jan, [place] [address] [place] [address] Jan, Third trimester Z33.1 [place] [address] [place] [address] Jan, Third trimester Z33.1 [place] [address] [place] [address] Jan, Third trimester Z33.1 [place] [address] [address] Jan, Encounter for supervision of normal in third trimester Z34.93 [facility] [address] [place] [id number] [place] [address] December, Encounter for supervision of normal first in third trimester Z34.03 [facility] [address] [place] [id number] [place] [address] December, Normal , first Z34.00 [facility] [address] [address] [id number] [place] [address] December, Encounter for supervision of normal in third trimester Z34.93 and Encounter for immunization Z23 [facility] [address] [id number] [place] [address] Nov, Normal , first Z34.00 [facility] [id number] [place] [address] Nov, Sore throat J02.9 and Acute nasopharyngitis J00 [facility] [id number] [place] [address] Oct, Second trimester Z34.92 [facility] [address] [place] [address] Sep, Second trimester Z34.92 [facility] [address] [place] [address] Sep, [facility] [id number] [place] [address] Aug, Normal , first Z34.00 [facility] [id number] [place] [address] Aug, Normal , first Z34.00 [facility] [address] [place] [address] Jun, [facility] [id number] [place] [address] Jun, Normal , first Z34.00 [facility] [id number] [place] [address] Jun, [facility] [id number] [place] [address] Jun, [facility] [id number] [place] [address] Jan, Sports physical Z02.5 [facility] [id number] [place] [address] Nov, 2014 [facility] [address] [address] Nov, [facility] [id number] [place] [address] Nov, [facility] [id number] [place] [address] Nov, [facility] [id number] [place] [address] Nov, [facility] [id number] [place] [address] Nov, [facility] [id number] [place] [address] Mar, [facility] [id number] [place] [address] Aug, IMMUNIZATIONS No Known Immunizations SOCIAL HISTORY Never Assessed REASON FOR VISIT OB f/u 1 wk --tcuppettRN PLAN OF CARE Activity Details Follow Up 1 Week Reason: VITAL SIGNS Height 62 in 2018-01-23 Weight 181.8 lbs 2018-01-23 Temperature 97.9 degrees Fahrenheit 2018-01-23 Heart Rate 72 bpm 2018-01-23 Respiratory Rate 18 2018-01-23 BMI 33.252 kg/m2 2018-01-23 Blood pressure systolic 108 mmHg 2018-01-23 Blood pressure diastolic 70 mmHg 2018-01-23 MEDICATIONS Medication Instructions Dosage Frequency Start Date End Date Duration Status Nasonex 50 mcg/actuation 1 sprays by Nasal route 2 times per day in each nostril Nov, Not-Taking Tums 500 MG Orally Once a day 1 tablet 24h Active Adult Gummy/DHA/FA 0.4-25 MG Active Melatonin 3 MG Orally Once a day 1 tablet at bedtime as needed with food 24h Active RESULTS Name Result Date Reference Range UA OB DIP (IN HOUSE) 2018-01-23 Glucose Negative Protein Negative PROCEDURES Procedure Date Ordered Result Body Site URINE-NO MICRO January 23, 2018 INSTRUCTIONS MEDICATIONS ADMINISTERED No Known Medications
--- OUTSIDE RECORDS SUMMARY | 2019-02-28 10:06 | XMS REPORT ---
Author Author YOLANDE ESPINO [facility] Address [address] [place] [address] Care Team Providers Care Screen Printing Loader Unloader Name Role Phone YOLANDE ESPINO Unavailable PROBLEMS Type Condition ICD9-CM Code YVM66-YM Code Onset Dates Condition Status SNOMED Code Problem Dysfunction of Eustachian tube 381.81 Active 01611118 Problem Unspecified otalgia 388.70 Active 90511096 Problem MENINGOCOCCAL DX V03.89 Active 97862944 Problem Other general medical examination for administrative purposes V70.3 Active 14951030 ALLERGIES No Known Allergies ENCOUNTERS Encounter Location Date Diagnosis [place] [id number] [place] [address] Mar, [facility] [id number] [place] [address] Feb, Third trimester Z33.1 [place] [id number] [place] [address] Feb, Third trimester Z33.1 and 39 weeks gestation of Z3A.39 [place] [id number] [place] [address] Jan, [facility] [id number] [place] [address] Jan, Third trimester Z33.1 [place] [id number] [place] [address] Jan, Third trimester Z33.1 [place] [id number] [place] [address] 13 Jan, 2018 Third trimester Z33.1 [place] [id number] [place] [address] Jan, Encounter for supervision of normal in third trimester Z34.93 [facility] [id number] [place] [address] December, Encounter for supervision of normal first in third trimester Z34.03 [facility] [id number] [place] [address] December, Normal , first Z34.00 [facility] [id number] [place] [address] December, Encounter for supervision of normal in third trimester Z34.93 and Encounter for immunization Z23 [facility] [id number] [place] [address] Nov, Normal , first Z34.00 [facility] [id number] [place] [address] Nov, Sore throat J02.9 and Acute nasopharyngitis J00 [facility] [id number] [place] [address] Oct, Second trimester Z34.92 [facility] [id number] [place] [address] Sep, Second trimester Z34.92 [facility] [id number] [place] [address] Sep, [facility] [id number] [place] [address] Aug, Normal , first Z34.00 [facility] [id number] [place] [address] Aug, Normal , first Z34.00 [facility] [id number] [place] [address] Jun, [facility] [id number] [place] [address] Jun, Normal , first Z34.00 [facility] [id number] [address] Jun, [facility] [id number] [place] [address] Jun, [facility] [id number] [place] [address] Jan, Sports physical Z02.5 [facility] [id number] [place] [address] Nov, [facility] [id number] [place] [address] Nov, [facility] [id number] [place] [address] Nov, [facility] [id number] [place] [address] Nov, [facility] [id number] [place] [address] Nov, [facility] [id number] [place] [address] Nov, [facility] [id number] [place] [address] Mar, [facility] [id number] [place] [address] Aug, IMMUNIZATIONS Vaccine Route Administration Date Status TDAP (BOOSTRIX) IM Intramuscular December 05, 2017 Administered SOCIAL HISTORY Never Assessed REASON FOR VISIT OB f/u 3 wk --felipe Keen wondering about melatonin, having trouble sleepi yuliana PLAN OF CARE Activity Details Follow Up 2 Weeks Reason: VITAL SIGNS Height 62 in 2017-12-05 Weight 166.2 lbs 2017-12-05 Temperature 98.0 degrees Fahrenheit 2017-12-05 Heart Rate 80 bpm 2017-12-05 Respiratory Rate 20 2017-12-05 BMI 30.398 kg/m2 2017-12-05 Blood pressure systolic 110 mmHg 2017-12-05 Blood pressure diastolic 78 mmHg 2017-12-05 MEDICATIONS Medication Instructions Dosage Frequency Start Date End Date Duration Status Nasonex 50 mcg/actuation 1 sprays by Nasal route 2 times per day in each nostril Nov, Not-Taking Adult Gummy/DHA/FA 0.4-25 MG Not-Taking RESULTS Name Result Date Reference Range UA OB DIP (IN HOUSE) 2017-12-05 Glucose negative Protein trace PROCEDURES Procedure Date Ordered Result Body Site TDAP (BOOSTRIX) December 05, 2017 URINE-NO MICRO December 05, 2017 SINGLE IMMUNIZATION ADMIN December 05, 2017 INSTRUCTIONS MEDICATIONS ADMINISTERED No Known Medications
--- OUTSIDE RECORDS SUMMARY | 2019-02-28 10:06 | XMS REPORT ---
Author Author YOLANDE ESPINO [facility] Address [address] [place] [address] Care Team Providers Care Die Drawing Checker Name Role Phone YOLANDE ESPINO Unavailable PROBLEMS Type Condition ICD9-CM Code [id number] Code Onset Dates Condition Status SNOMED Code Problem Dysfunction of Eustachian tube 381.81 Active 46718032 Problem Unspecified otalgia 388.70 Active 39333197 Problem MENINGOCOCCAL DX V03.89 Active 75779137 Problem Other general medical examination for administrative purposes V70.3 Active 18243533 ALLERGIES No Known Allergies ENCOUNTERS Encounter Location Date Diagnosis [place] [id number] [place] [address] Mar, Encounter for routine follow-up Z39.2 [place] [address] [place] [address] Feb, Third trimester Z33.1 [place] [address] [place] [address] Feb, Third trimester Z33.1 and 39 weeks gestation of Z3A.39 [place] [address] [place] [address] Jan, [place] [address] [place] [phone] Jan, Third trimester Z33.1 [place] [address] [place] [address] Jan, Third trimester Z33.1 [place] [address] [place] [address] Jan, Third trimester Z33.1 [place] [address] [address] Jan, Encounter for supervision of normal in third trimester Z34.93 [facility] [address] [place] [id number] [place] [address] December, Encounter for supervision of normal first in third trimester Z34.03 [facility] [address] [id number] [place] [address] December, Normal , first Z34.00 [facility] [address] [place] [address] [id number] [place] [address] December, Encounter for supervision of normal in third trimester Z34.93 and Encounter for immunization Z23 [facility] [address] [place] [address] [id number] [place] [address] Nov, Normal , first Z34.00 [facility] [address] [id number] [place] [address] Nov, Sore throat J02.9 and Acute nasopharyngitis J00 [facility] [address] [id number] [place] [address] Oct, Second trimester Z34.92 [facility] [address] [place] [address] Sep, Second trimester Z34.92 [facility] [address] [place] [address] Sep, [facility] [address] [place] [address] [id number] [place] [address] Aug, Normal , first Z34.00 [facility] [address] [id number] [place] [address] Aug, Normal , first Z34.00 [facility] [address] [place] [address] Jun, [facility] [address] [place] [address] [id number] [place] [address] Jun, Normal , first Z34.00 [facility] [address] [address] [id number] [place] [address] Jun, [facility] [address] [id number] [place] [address] Jun, [facility] [address] [id number] [place] [address] Jan, Sports physical Z02.5 [facility] [address] [id number] [place] [address] 14 Nov, 2014 [facility] [address] [id number] [place] [address] Nov, [facility] [address] [id number] [place] [address] Nov, [facility] [address] [id number] [place] [address] Nov, [facility] [address] [id number] [place] [address] Nov, [facility] [id number] [place] [address] Nov, [facility] [id number] [place] [address] Mar, [facility] [address] [id number] [place] [address] Aug, IMMUNIZATIONS No Known Immunizations SOCIAL HISTORY Never Assessed REASON FOR VISIT OB f/u 2 wk -AHarrymanRN PLAN OF CARE Activity Details Follow Up 1 Week Reason: VITAL SIGNS Height 62 in 2018-01-02 Weight 171.0 lbs 2018-01-02 Temperature 98.2 degrees Fahrenheit 2018-01-02 Heart Rate 78 bpm 2018-01-02 Respiratory Rate 20 2018-01-02 BMI 31.276 kg/m2 2018-01-02 Blood pressure systolic 108 mmHg 2018-01-02 Blood pressure diastolic 70 mmHg 2018-01-02 MEDICATIONS Medication Instructions Dosage Frequency Start Date [...]
--- OUTSIDE RECORDS SUMMARY | 2019-02-28 10:06 | XMS REPORT ---
Author Author YOLANDE ESPINO [facility] Address [address] [place] [address] Care Team Providers Care Hand Blocker Name Role Phone YOLANDE ESPINO Unavailable PROBLEMS Type Condition ICD9-CM Code QDT28-EL Code Onset Dates Condition Status SNOMED Code Problem Dysfunction of Eustachian tube 381.81 Active 25053906 Problem Unspecified otalgia 388.70 Active 32118501 Problem MENINGOCOCCAL DX V03.89 Active 97236196 Problem Other general medical examination for administrative purposes V70.3 Active 68658664 ALLERGIES No Known Allergies ENCOUNTERS Encounter Location Date Diagnosis [place] [address] [place] [address] Mar, Encounter for routine follow-up Z39.2 [place] [address] [place] [address] Feb, Third trimester Z33.1 [place] [address] [place] [address] 02 Feb, 2018 Third trimester Z33.1 and 39 weeks gestation of Z3A.39 [place] [address] [place] [address] Jan, [place] [address] [place] [address] Jan, Third trimester Z33.1 [place] [address] [place] [address] Jan, Third trimester Z33.1 [place] [address] [place] [address] Jan, Third trimester Z33.1 [place] [address] [address] Jan, Encounter for supervision of normal in third trimester Z34.93 [facility] [address] [place] [id number] [place] [address] December, Encounter for supervision of normal first in third trimester Z34.03 [facility] [address] [place] [address] [id number] [place] [address] December, Normal , first Z34.00 [facility] [address] [place] [address] [id number] [place] [address] December, Encounter for supervision of normal in third trimester Z34.93 and Encounter for immunization Z23 [facility] [address] [place] [address] [id number] [place] [address] Nov, Normal , first Z34.00 [facility] [address] [place] [address] [id number] [place] [address] Nov, Sore throat J02.9 and Acute nasopharyngitis J00 [facility] [address] [place] [address] [id number] [place] [address] Oct, Second trimester Z34.92 [facility] [address] [place] [address] Sep, Second trimester Z34.92 [facility] [address] [place] [address] Sep, [facility] [address] [place] [address] [id number] [place] [address] Aug, Normal , first Z34.00 [facility] [address] [place] [address] [id number] [place] [address] Aug, Normal , first Z34.00 [facility] [address] [place] [address] Jun, [facility] [address] [place] [address] [id number] [place] [address] Jun, Normal , first Z34.00 [facility] [address] [place] [address] [id number] [place] [address] Jun, [facility] [address] [place] [address] [id number] [place] [address] Jun, [facility] [address] [address] [id number] [place] [address] Jan, Sports physical Z02.5 [facility] [address] [place] [address] [id number] [place] [address] Nov, [facility] [address] [address] Nov, [facility] [address] [place] [address] [id number] [place] [address] Nov, [facility] [address] [place] [address] [id number] [place] [address] Nov, [facility] [address] [place] [address] [id number] [place] [address] Nov, [facility] [address] [address] [id number] [place] [address] Nov, [facility] [address] [place] [address] [id number] [place] [address] Mar, [facility] [address] [id number] [place] [address] Aug, IMMUNIZATIONS No Known Immunizations SOCIAL HISTORY Never Assessed REASON FOR VISIT OB f/u 1 wk -AHarrymanRN, contractions but nothing regular PLAN OF CARE Activity Details Follow Up 1 Week Reason: VITAL SIGNS Height 62 in 2018-01-30 Weight 182.3 lbs 2018-01-30 Temperature 97.1 degrees Fahrenheit 2018-01-30 Heart Rate 84 bpm 2018-01-30 Respiratory Rate 20 2018-01-30 BMI 33.343 kg/m2 2018-01-30 Blood pressure systolic 108 mmHg 2018-01-30 Blood pressure diastolic 70 mmHg 2018-01-30 MEDICATIONS Medication Instructions Dosage Frequency Start Date [...] Reference Range UA OB DIP (IN HOUSE) 2018-01-30 Glucose Negative Protein 1+ PROCEDURES Procedure Date Ordered Result Body Site URINE-NO MICRO January 30, 2018 INSTRUCTIONS MEDICATIONS ADMINISTERED No Known Medications
--- OUTSIDE RECORDS SUMMARY | 2019-02-28 10:06 | XMS REPORT ---
Author Author NEHEMIASHAMILTON [facility] Address [address] [place] [address] Care Team Providers Care Plastic Installer Name Role Phone HAMILTON DEL CID Unavailable PROBLEMS Type Condition ICD9-CM Code XUK01-WS Code Onset Dates Condition Status SNOMED Code Problem Dysfunction of Eustachian tube 381.81 Active 90898428 Problem Unspecified otalgia 388.70 Active 97222833 Problem MENINGOCOCCAL DX V03.89 Active 90996743 Problem Other general medical examination for administrative purposes V70.3 Active 57027065 ALLERGIES No Information ENCOUNTERS Encounter Location Date Diagnosis [place] [address] [place] [address] Mar, Encounter for routine follow-up Z39.2 [place] [address] [place] [address] Feb, Third trimester Z33.1 [place] [address] [place] [address] Feb, Third trimester Z33.1 and 39 weeks gestation of Z3A.39 [place] [address] [place] [address] Jan, [place] [address] [place] [id number] [place] [address] Jan, Third trimester Z33.1 [place] [address] [place] [id number] [place] [address] Jan, Third trimester Z33.1 [place] [address], [place] [address] Jan, Third trimester Z33.1 [place] [address] [place] [id number] [address] Jan, Encounter for supervision of normal in third trimester Z34.93 [facility] [address] [place] [address] [id number] [place] [address] December, Encounter for supervision of normal first in third trimester Z34.03 [facility] [address] [place] [id number] [place] [address] December, Normal , first Z34.00 [facility] [address] [place] [id number] [place] [address] December, Encounter for supervision of normal in third trimester Z34.93 and Encounter for immunization Z23 [facility] [address] [place] [id number] [place] [address] Nov, Normal , first Z34.00 [facility] [address] [place] [address] [id number] [place] [address] Nov, Sore throat J02.9 and Acute nasopharyngitis J00 [facility] [address] [place] [id number] [place] [address] Oct, Second trimester Z34.92 [facility] [address] [address] [id number] [place] [address] Sep, Second trimester Z34.92 [facility] [address] [place] [id number] [place] [address] Sep, [facility] [address] [id number] [place] [address] Aug, Normal , first Z34.00 [facility] [address] [id number] [place] [address] Aug, Normal , first Z34.00 [facility] [address] [place] [address] Jun, [facility] [address] [address] [id number] [place] [address] Jun, Normal , first Z34.00 [facility] [address] [id number] [place] [address] Jun, [facility] [address] [id number] [place] [address] Jun, [facility] [id number] [place] [address] Jan, Sports physical Z02.5 [facility] [address] [id number] [place] [address] 14 Nov, 2014 [facility] [address] [id number] [place] [address] Nov, [facility] [address] [address] [id number] [place] [address] Nov, [facility] [address] [id number] [place] [address] Nov, [facility] [address] [id number] [place] [address] Nov, [facility] [address] [id number] [place] [address] Nov, [facility] [address] [id number] [place] [address] Mar, [facility] [address] [id number] [place] [address] Aug, IMMUNIZATIONS No Known Immunizations SOCIAL HISTORY Never Assessed REASON FOR VISIT OB f/u 1 wk -awoods PLAN OF CARE Activity Details Follow Up 1 Week, 1 Week, 1 Week, 1 Week Reason: VITAL SIGNS Height 62 in 2018-02-04 Weight 182 lbs 2018-02-04 Temperature 98.5 degrees Fahrenheit 2018-02-04 Heart Rate 109 bpm 2018-02-04 Respiratory Rate 20 2018-02-04 BMI 33.288 kg/m2 2018-02-04 Blood pressure systolic 112 mmHg 2018-02-04 Blood pressure diastolic 72 mmHg 2018-02-04 MEDICATIONS Medication Instructions Dosage Frequency Start Date End Date Duration Status Melatonin 3 MG Orally Once a day 1 tablet at bedtime as needed with food 24h Active Adult Gummy/DHA/FA 0.4-25 MG Active Tums 500 MG Orally Once a day 1 tablet 24h Active Nasonex 50 mcg/actuation 1 sprays by Nasal route 2 times per day in each nostril Nov, Not-Taking RESULTS Name Result Date Reference Range UA OB DIP (IN HOUSE) 2018-02-04 Glucose neg Protein 1+ PROCEDURES Procedure Date Ordered Result Body Site URINE-NO MICRO February 04, 2018 INSTRUCTIONS MEDICATIONS ADMINISTERED No Known Medications
--- OUTSIDE RECORDS SUMMARY | 2019-02-28 10:06 | XMS REPORT ---
Author Author YOLANDE ESPINO [facility] Address [address] [place] [address] Care Team Providers Care Childcare Attendant Name Role Phone YOLANDE ESPINO Unavailable PROBLEMS Type Condition ICD9-CM Code ETE32-RJ Code Onset Dates Condition Status SNOMED Code Problem Dysfunction of Eustachian tube 381.81 Active 34195363 Problem Unspecified otalgia 388.70 Active 48330280 Problem MENINGOCOCCAL DX V03.89 Active 00858566 Problem Other general medical examination for administrative purposes V70.3 Active 85085784 ALLERGIES No Information ENCOUNTERS Encounter Location Date Diagnosis [place] [address] [place] [address] Mar, Encounter for routine follow-up Z39.2 [place] [address] [place] [address] Feb, Third trimester Z33.1 [place] [address] [place] [address] Feb, Third trimester Z33.1 and 39 weeks gestation of Z3A.39 [place] [address] [place] [address] Jan, [place] [address] [place] [id number] [place] [address] Jan, Third trimester Z33.1 [place] [address] [id number] [place] [address] Jan, Third trimester Z33.1 [place] [address] [address] Jan, Third trimester Z33.1 [place] [address] [place] [id number] [address] Jan, Encounter for supervision of normal in third trimester Z34.93 [facility] [address] [id number] [place] [address] December, Encounter for supervision of normal first in third trimester Z34.03 [facility] [address] [address] [id number] [place] [address] December, Normal , first Z34.00 [facility] [id number] [place] [address] December, Encounter for supervision of normal in third trimester Z34.93 and Encounter for immunization Z23 [facility] [address] [place] [address] [id number] [place] [address] Nov, Normal , first Z34.00 [facility] [id number] [place] [address] Nov, Sore throat J02.9 and Acute nasopharyngitis J00 [facility] [id number] [place] [address] Oct, Second trimester Z34.92 [facility] [id number] [place] [address] Sep, Second trimester Z34.92 [facility] [id number] [place] [address] Sep, [facility] [id number] [place] [address] Aug, Normal , first Z34.00 [facility] [id number] [place] [address] Aug, Normal , first Z34.00 [facility] [address] [place] [address] Jun, [facility] [id number] [place] [address] Jun, Normal , first Z34.00 [facility] [id number] [place] [address] Jun, [facility] [id number] [place] [address] Jun, [facility] [id number] [place] [address] Jan, Sports physical Z02.5 [facility] [id number] [place] [address] Nov, [facility] [id number] [place] [address] Nov, [facility] [id number] [place] [address] Nov, [facility] [id number] [place] [address] Nov, [facility] [id number] [place] [address] Nov, [facility] [id number] [place] [address] Nov, [facility] [id number] [place] [address] Mar, [facility] [id number] [place] [address] Aug, IMMUNIZATIONS No Known Immunizations SOCIAL HISTORY Never Assessed REASON FOR VISIT OB f/u 2 wk-awoods PLAN OF CARE Activity Details Follow Up 1 Week Reason: VITAL SIGNS Height 62 in 2018-01-16 Weight 176 lbs 2018-01-16 Temperature 98.2 degrees Fahrenheit 2018-01-16 Heart Rate 97 bpm 2018-01-16 Respiratory Rate 20 2018-01-16 BMI 32.191 kg/m2 2018-01-16 Blood pressure systolic 108 mmHg 2018-01-16 Blood pressure diastolic 68 mmHg 2018-01-16 MEDICATIONS Medication Instructions Dosage Frequency Start Date [...] Reference Range UA OB DIP (IN HOUSE) 2018-01-16 Glucose neg Protein 1+ PROCEDURES Procedure Date Ordered Result Body Site URINE-NO MICRO January 16, 2018 INSTRUCTIONS MEDICATIONS ADMINISTERED No Known Medications
--- OUTSIDE RECORDS SUMMARY | 2019-02-28 10:06 | XMS REPORT ---
Author Author YOLANDE ESPINO [facility] Address [address] [place] [address] Care Team Providers Care Human Insights Lead Ads Marketing Name Role Phone YOLANDE ESPINO Unavailable PROBLEMS Type Condition ICD9-CM Code IOT73-WZ Code Onset Dates Condition Status SNOMED Code Problem Dysfunction of Eustachian tube 381.81 Active 04294511 Problem Unspecified otalgia 388.70 Active 87917995 Problem MENINGOCOCCAL DX V03.89 Active 39745441 Problem Other general medical examination for administrative purposes V70.3 Active 49445614 ALLERGIES No Known Allergies ENCOUNTERS Encounter Location Date Diagnosis [place] [id number] [place] [address] Mar, [facility] [id number] [place] [address] Feb, Third trimester Z33.1 [place] [id number] [place] [address] Feb, Third trimester Z33.1 and 39 weeks gestation of Z3A.39 [place] [id number] [place] [address] Jan, [facility] [id number] [place] [address] Jan, Third trimester Z33.1 [place] [id number] [place] [address] Jan, Third trimester Z33.1 [place] [id number] [place] [address] Jan, Third trimester Z33.1 [place] [id number] [place] [address] Jan, Encounter for supervision of normal in third trimester Z34.93 [facility] [id number] [place] [address] December, Encounter for supervision of normal first in third trimester Z34.03 [facility] [id number] [place] [address] December, Normal , first Z34.00 [facility] [id number] [place] [address] December, Encounter for supervision of normal in third trimester Z34.93 and Encounter for immunization Z23 [facility] [id number] [place] [address] Nov, Normal , first Z34.00 [facility] [id number] [place] [address] Nov, Sore throat J02.9 and Acute nasopharyngitis J00 [facility] [id number] [place] [address] Oct, Second trimester Z34.92 [facility] [id number] [place] [address] Sep, Second trimester Z34.92 [facility] [id number] [place] [address] Sep, [facility] [id number] [place] [address] Aug, Normal , first Z34.00 [facility] [id number] [place] [address] Aug, Normal , first Z34.00 [facility] [id number] [place] [address] Jun, [facility] [id number] [place] [address] Jun, Normal , first Z34.00 [facility] [id number] [address] Jun, [facility] [address], [place] [address] Jun, [facility] [address] [address] Jan, Sports physical Z02.5 [facility] [id number] [address] Nov, [facility] [id number] [place] [address] Nov, [facility] [id number] [place] [address] Nov, [facility] [id number] [place] [address] Nov, [facility] [id number] [place] [address] Nov, [facility] [id number] [place] [address] Nov, [facility] [address], [place] [address] Mar, [facility] [address], [place] [address] Aug, IMMUNIZATIONS No Known Immunizations SOCIAL HISTORY Never Assessed RE[facility] VISIT [facility] Activity Details Follow Up 2 Weeks Reason: VITAL SIGNS Height 62 in 2017-12-19 Weight 172.3 lbs 2017-12-19 Temperature 98.2 degrees Fahrenheit 2017-12-19 Heart Rate 80 bpm 2017-12-19 Respiratory Rate 20 2017-12-19 BMI 31.514 kg/m2 2017-12-19 Blood pressure systolic 110 mmHg 2017-12-19 Blood pressure diastolic 76 mmHg 2017-12-19 MEDICATIONS Medication Instructions Dosage Frequency Start Date End Date Duration Status Tums 500 MG Orally Once a day 1 tablet 24h Active Nasonex 50 mcg/actuation 1 sprays by Nasal route 2 times per day in each nostril Nov, Not-Taking Adult Gummy/DHA/FA 0.4-25 MG Active RESULTS Name Result Date Reference Range UA OB DIP (IN HOUSE) 2017-12-19 Glucose negative Protein trace PROCEDURES Procedure Date Ordered Result Body Site URINE-NO MICRO December 19, 2017 INSTRUCTIONS MEDICATIONS ADMINISTERED No Known Medications
--- OUTSIDE RECORDS SUMMARY | 2019-02-28 10:07 | XMS REPORT ---
Author Author YOLANDE ESPINO [facility] Address [address] [place] [address] Care Team Providers Care Director Of Sustainability Programs Name Role Phone YOLANDE ESPINO Unavailable PROBLEMS Type Condition ICD9-CM Code UVG61-DH Code Onset Dates Condition Status SNOMED Code Problem Dysfunction of Eustachian tube 381.81 Active 13754949 Problem Unspecified otalgia 388.70 Active 37644318 Problem MENINGOCOCCAL DX V03.89 Active 16541829 Problem Other general medical examination for administrative purposes V70.3 Active 96549410 ALLERGIES No Information ENCOUNTERS Encounter Location Date Diagnosis [place] [id number] [place] [address] Mar, [facility] [id number] [place] [address] Feb, Third trimester Z33.1 [place] [id number] [place] [address] Feb, Third trimester Z33.1 and 39 weeks gestation of Z3A.39 [place] [address] [place] [address] Jan, [facility] [id number] [place] [address] Jan, Third trimester Z33.1 [place] [id number] [place] [address] Jan, Third trimester Z33.1 [place] [id number] [place] [address] 13 Jan, 2018 Third trimester Z33.1 [place] [id number] [place] [address] Jan, Encounter for supervision of normal in third trimester Z34.93 [facility] [id number] [place] [address] December, Encounter for supervision of normal first in third trimester Z34.03 [facility] [id number] [place] [address] December, Normal , first Z34.00 [facility] [id number] [place] [address] December, Encounter for supervision of normal in third trimester Z34.93 and Encounter for immunization Z23 [facility] [id number] [place] [address] Nov, Normal , first Z34.00 [facility] [id number] [place] [address] Nov, Sore throat J02.9 and Acute nasopharyngitis J00 [facility] [id number] [place] [address] Oct, Second trimester Z34.92 [facility] [id number] [place] [address] Sep, Second trimester Z34.92 [facility] [id number] [place] [address] Sep, [facility] [id number] [place] [address] Aug, Normal , first Z34.00 [facility] [id number] [place] [address] Aug, Normal , first Z34.00 [facility] [id number] [place] [address] Jun, [facility] [id number] [place] [address] Jun, Normal , first Z34.00 [facility] [address], [place] [address] Jun, [facility] [address], [place] [address] Jun, [facility] [address], [place] [address] Jan, Sports physical Z02.5 [facility] [id number], [place] [address] Nov, [facility] [id number] [place] [address] Nov, [facility] [id number] [place] [address] Nov, [facility] [id number] [place] [address] Nov, [facility] [address], [place] [address] Nov, [facility] [id number] [place] [address] Nov, [facility] [address], [place] [address] Mar, [facility] [address], [place] [address] Aug, IMMUNIZATIONS No Known Immunizations SOCIAL HISTORY Never Assessed REASON FOR VISIT OB f/u-4 wk-ALLEY [facility] PLAN OF CARE Activity Details Follow Up 4 Weeks Reason: VITAL SIGNS Height 62 in 2017-10-03 Weight 148 lbs 2017-10-03 Temperature 98 degrees Fahrenheit 2017-10-03 Heart Rate 86 bpm 2017-10-03 Respiratory Rate 18 2017-10-03 BMI 27.07 kg/m2 2017-10-03 Blood pressure systolic 110 mmHg 2017-10-03 Blood pressure diastolic 70 mmHg 2017-10-03 MEDICATIONS Medication Instructions Dosage Frequency Start Date End Date Duration Status Nasonex 50 mcg/actuation 1 sprays by Nasal route 2 times per day in each nostril Nov, Not-Taking Adult Gummy/DHA/FA 0.4-25 MG Active RESULTS Name Result Date Reference Range UA OB DIP (IN HOUSE) 2017-10-03 Glucose negative Protein trace Ultrasound : OB, Follow-up 2017-10-09 PROCEDURES Procedure Date Ordered Result Body Site URINE-NO MICRO Oct 03, 2017 INSTRUCTIONS MEDICATIONS ADMINISTERED No Known Medications
--- OUTSIDE RECORDS SUMMARY | 2019-02-28 10:07 | XMS REPORT ---
Author Author YOLANDE ESPINO [facility] Address [address] [place] [address] Care Team Providers Care Pocket Machine Operator Name Role Phone YOLANDE ESPINO Unavailable PROBLEMS Type Condition ICD9-CM Code NZZ38-MZ Code Onset Dates Condition Status SNOMED Code Problem Dysfunction of Eustachian tube 381.81 Active 35844866 Problem Unspecified otalgia 388.70 Active 94013943 Problem MENINGOCOCCAL DX V03.89 Active 52841688 Problem Other general medical examination for administrative purposes V70.3 Active 68461656 ALLERGIES No Known Allergies ENCOUNTERS Encounter Location Date Diagnosis [place] [id number] [place] [address] Mar, [facility] [id number] [place] [address] Feb, Third trimester Z33.1 [place] [id number] [place] [address] Feb, Third trimester Z33.1 and 39 weeks gestation of Z3A.39 [place] [id number] [place] [address] Jan, [facility] [id number] [place] [address] Jan, Third trimester Z33.1 [place] [id number] [place] [address] Jan, Third trimester Z33.1 [place] [id number] [place] [address] 13 Jan, 2018 Third trimester Z33.1 [place] [id number] [place] [address] Jan, Encounter for supervision of normal in third trimester Z34.93 [facility] [id number] [place] [address] December, Encounter for supervision of normal first in third trimester Z34.03 [facility] [id number] [place] [address] December, Normal , first Z34.00 [facility] [id number] [place] [address] December, Encounter for supervision of normal in third trimester Z34.93 and Encounter for immunization Z23 [facility] [id number] [place] [address] Nov, Normal , first Z34.00 [facility] [id number] [place] [address] Nov, Sore throat J02.9 and Acute nasopharyngitis J00 [facility] [id number] [place] [address] Oct, Second trimester Z34.92 [facility] [id number] [place] [address] Sep, Second trimester Z34.92 [facility] [id number] [place] [address] Sep, [facility] [id number] [place] [address] Aug, Normal , first Z34.00 [facility] [id number] [place] [address] Aug, Normal , first Z34.00 [facility] [id number] [place] [address] Jun, [facility] [id number] [place] [address] Jun, Normal , first Z34.00 [facility] [address], [place] [address] Jun, [facility] [address], [place] [address] Jun, [facility] [address], [place] [address] Jan, Sports physical Z02.5 [facility] [id number] [place] [address] Nov, [facility] [id number] [place] [address] Nov, [facility] [id number] [place] [address] Nov, [facility] [id number] [place] [address] Nov, [facility] [id number] [place] [address] Nov, [facility] [id number] [place] [address] Nov, [facility] [address], [place] [address] Mar, [facility] [address], [place] [address] Aug, IMMUNIZATIONS No Known Immunizations SOCIAL HISTORY Never Assessed REASON FOR VISIT OB f/u 4 wk --tcuppettRN PLAN OF CARE Activity Details Follow Up 2 Weeks Reason: VITAL SIGNS Height 62 in 2017-11-21 Weight 163.0 lbs 2017-11-21 Temperature 98.2 degrees Fahrenheit 2017-11-21 Heart Rate 76 bpm 2017-11-21 Respiratory Rate 20 2017-11-21 BMI 29.813 kg/m2 2017-11-21 Blood pressure systolic 108 mmHg 2017-11-21 Blood pressure diastolic 60 mmHg 2017-11-21 MEDICATIONS Medication Instructions Dosage Frequency Start Date End Date Duration Status Nasonex 50 mcg/actuation 1 sprays by Nasal route 2 times per day in each nostril Nov, Not-Taking Adult Gummy/DHA/FA 0.4-25 MG Active RESULTS Name Result Date Reference Range UA OB DIP (IN HOUSE) 2017-11-21 Glucose negative Protein trace PROCEDURES Procedure Date Ordered Result Body Site URINE-NO MICRO November 21, 2017 INSTRUCTIONS MEDICATIONS ADMINISTERED No Known Medications
--- OUTSIDE RECORDS SUMMARY | 2019-02-28 10:07 | XMS REPORT ---
Author Author JAMEEL COE [facility] Address [address] [place] [address] Care Team Providers Care Technical Professional Name Role Phone JAMEEL COE Unavailable PROBLEMS Type Condition ICD9-CM Code RRA93-QT Code Onset Dates Condition Status SNOMED Code Problem Dysfunction of Eustachian tube 381.81 Active 19439084 Problem Unspecified otalgia 388.70 Active 65932293 Problem MENINGOCOCCAL DX V03.89 Active 22825768 Problem Other general medical examination for administrative purposes V70.3 Active 00493752 ALLERGIES No Information ENCOUNTERS Encounter Location Date Diagnosis [place] [id number] [place] [address] Mar, [place] [id number] [place] [address] Feb, Third trimester Z33.1 [place] [id number] [place] [address] Feb, Third trimester Z33.1 and 39 weeks gestation of Z3A.39 [place] [id number] [place] [address] Jan, [place] [id number] [place] [address] Jan, Third trimester Z33.1 [place] [id number] [place] [address] Jan, Third trimester Z33.1 [place] [id number] [place] [address] 13 Jan, 2018 Third trimester Z33.1 [place] [id number] [place] [address] Jan, Encounter for supervision of normal in third trimester Z34.93 [facility] [id number] [place] [address] December, Encounter for supervision of normal first in third trimester Z34.03 [facility] [id number] [place] [address] December, Normal , first Z34.00 [facility] [id number] [place] [address] December, Encounter for supervision of normal in third trimester Z34.93 and Encounter for immunization Z23 [facility] [id number] [place] [address] Nov, Normal , first Z34.00 [facility] [id number] [place] [address] Nov, Sore throat J02.9 and Acute nasopharyngitis J00 [facility] [id number] [place] [address] Oct, Second trimester Z34.92 [facility] [id number] [place] [address] Sep, Second trimester Z34.92 [facility] [address] [place] [address] Sep, [facility] [id number] [place] [address] Aug, Normal , first Z34.00 [facility] [id number] [place] [address] Aug, Normal , first Z34.00 [facility] [id number] [place] [address] Jun, [facility] [address] [address] Jun, Normal , first Z34.00 [facility] [address] [place] [address] Jun, [facility] [id number] [place] [address] Jun, [facility] [address] [place] [address] Jan, Sports physical Z02.5 [facility] [id number] [place] [address] Nov, [facility] [id number] [place] [address] Nov, [facility] [id number] [place] [address] Nov, [facility] [id number] [place] [address] Nov, [facility] [id number] [place] [address] Nov, [facility] [id number] [place] [address] Nov, [facility] [address] [address] Mar, [facility] [id number] [place] [address] Aug, IMMUNIZATIONS No Known Immunizations SOCIAL HISTORY Never Assessed REASON FOR VISIT Sore throat PLAN OF CARE Activity Details Follow Up prn Reason: VITAL SIGNS Height 62 in 2017-11-15 Weight 161.8 lbs 2017-11-15 Temperature 96.9 degrees Fahrenheit 2017-11-15 Heart Rate 76 bpm 2017-11-15 Respiratory Rate 18 2017-11-15 BMI 29.59 kg/m2 2017-11-15 Blood pressure systolic 110 mmHg 2017-11-15 Blood pressure diastolic 64 mmHg 2017-11-15 MEDICATIONS Medication Instructions Dosage Frequency Start Date End Date Duration Status Adult Gummy/DHA/FA 0.4-25 MG Active Nasonex 50 mcg/actuation 1 sprays by Nasal route 2 times per day in each nostril Nov, Unknown RESULTS Name Result Date Reference Range STREP A (IN HOUSE) 2017-11-15 STREP A negative Control + Lot # [id number] Exp date 2020-05-17 PROCEDURES Procedure Date Ordered Result Body Site STREP A ASSAY W/OPTIC November 15, 2017 INSTRUCTIONS MEDICATIONS ADMINISTERED No Known Medications
--- OUTSIDE RECORDS SUMMARY | 2019-02-28 10:07 | XMS REPORT ---
Author Author YOLANDE ESPINO [facility] Address [address] [place] [address] Care Team Providers Care Senior Treasury Consultant Name Role Phone YOLANDE ESPINO Unavailable PROBLEMS Type Condition ICD9-CM Code VUG01-RN Code Onset Dates Condition Status SNOMED Code Problem Dysfunction of Eustachian tube 381.81 Active 81602453 Problem Unspecified otalgia 388.70 Active 66344840 Problem MENINGOCOCCAL DX V03.89 Active 37735146 Problem Other general medical examination for administrative purposes V70.3 Active 62401402 ALLERGIES No Information ENCOUNTERS Encounter Location Date Diagnosis [place] [id number] [place] [phone] Mar, [facility] [id number] [place] [phone] Feb, Third trimester Z33.1 [place] [id number] [place] [phone] Feb, Third trimester Z33.1 and 39 weeks gestation of Z3A.39 [place] [id number] [place] [phone] Jan, [facility] [id number] [place] [phone] Jan, Third trimester Z33.1 [place] [id number] [place] [address] Jan, Third trimester Z33.1 [place] [id number] [place] [phone] 13 Jan, 2018 Third trimester Z33.1 [place] [id number] [place] [phone] Jan, Encounter for supervision of normal in third trimester Z34.93 [facility] [id number] [place] [phone] December, Encounter for supervision of normal first in third trimester Z34.03 [facility] [id number] [place] [phone] December, Normal , first Z34.00 [facility] [id number] [place] [phone] December, Encounter for supervision of normal in third trimester Z34.93 and Encounter for immunization Z23 [facility] [id number] [place] [phone] Nov, Normal , first Z34.00 [facility] [id number] [place] [phone] Nov, Sore throat J02.9 and Acute nasopharyngitis J00 [facility] [id number] [place] [address] Oct, Second trimester Z34.92 [facility] [id number] [place] [phone] Sep, Second trimester Z34.92 [facility] [id number] [place] [phone] Sep, [facility] [id number] [place] [address] Aug, Normal , first Z34.00 [facility] [id number] [place] [phone] Aug, Normal , first Z34.00 [facility] [id number] [place] [phone] Jun, [facility] [id number] [place] [address] Jun, Normal , first Z34.00 [facility] [id number] [place] [address] Jun, [facility] [id number] [place] [address] Jun, [facility] [id number] [place] [address] Jan, Sports physical Z02.5 [facility] [id number] [place] [address] Nov, [facility] [id number] [place] [phone] Nov, [facility] [id number] [place] [phone] Nov, [facility] [id number] [place] [phone] Nov, [facility] [id number] [place] [address] Nov, [facility] [id number] [place] [address] Nov, [facility] [id number] [place] [address] Mar, [facility] [id number] [place] [address] Aug, IMMUNIZATIONS No Known Immunizations SOCIAL HISTORY Never Assessed REASON FOR VISIT OB f/u 4 wk -ALLEY Zamarripa PLAN OF CARE Activity Details Follow Up 3 Weeks Reason: VITAL SIGNS Height 62 in 2017-10-31 Weight 161 lbs 2017-10-31 Temperature 98 degrees Fahrenheit 2017-10-31 Heart Rate 80 bpm 2017-10-31 Respiratory Rate 18 2017-10-31 BMI 29.447 kg/m2 2017-10-31 Blood pressure systolic 100 mmHg 2017-10-31 Blood pressure diastolic 70 mmHg 2017-10-31 MEDICATIONS Unknown Medications RESULTS No Results PROCEDURES Procedure Date Ordered Result Body Site URINE-NO MICRO October 31, 2017 LAB NOT BILLED BY [facility] October 31, 2017 INSTRUCTIONS MEDICATIONS ADMINISTERED No Known Medications
--- OUTSIDE RECORDS SUMMARY | 2019-02-28 10:08 | XMS REPORT | Continuity of Care Document ---
Author Organization Unknown Address Unknown Allergies Active Description Code Type Severity Reaction Onset Reported/Identified Relationship to Patient Clinical Status Yes No Known Drug Allergies [id number] Drug Allergy Mild N/A 10/29/2009 Medications There [...] OF NORMAL PREG, UNSP, 10/10/2017 YOLANDE ESPINO MD Ot Z3A.22 22 WEEKS GESTATION OF 10/24/2017 YOLANDE ESPINO MD, Ot Z34.92 ENCNTR FOR SUPRVSN OF NORMAL PREG, UNSP, 10/24/2017 YOLANDE ESPINO MD Ot Z3A.22 22 WEEKS GESTATION OF 02/14/2018 YOLANDE ESPINO MD Ot Z34.01 ENCNTR FOR SUPRVSN OF NORMAL FIRST PREG, 02/14/2018 YOLANDE ESPINO MD Ot Z3A.09 9 WEEKS GESTATION OF 02/14/2018 YOLANDE ESPINO MD Ot Z36.89 ENCOUNTER FOR OTHER SPECIFIED 02/14/2018 YOLANDE ESPINO MD, Ot Z3A.18 18 WEEKS GESTATION OF 02/14/2018 YOLANDE ESPINO MD, Ot Z34.92 ENCNTR FOR SUPRVSN OF NORMAL PREG, UNSP, 02/14/2018 YOLANDE ESPINO MD Ot Z3A.22 22 WEEKS GESTATION OF 02/16/2018 YOLANDE ESPINO MD Ot O48.0 POST-TERM 02/16/2018 YOLANDE ESPINO MD Ot Z37.0 SINGLE LIVE 02/16/2018 YOLANDE ESPINO MD, Ot Z3A.40 40 WEEKS GESTATION OF 10/02/2018 YOLANDE ESPINO MD Ot Z34.01 ENCNTR FOR SUPRVSN OF NORMAL FIRST PREG, 10/02/2018 YOLANDE ESPINO MD Ot Z3A.09 9 WEEKS GESTATION OF 10/02/2018 YOLANDE ESPINO MD, Ot Z36.89 ENCOUNTER FOR OTHER SPECIFIED 10/02/2018 YOLANDE ESPINO MD, Ot Z3A.18 18 WEEKS GESTATION OF 10/02/2018 YOLANDE ESPINO MD Ot Z34.92 ENCNTR FOR SUPRVSN OF NORMAL PREG, UNSP, 10/02/2018 YOLANDE ESPINO MD Ot Z3A.22 22 WEEKS GESTATION OF 10/02/2018 YOLANDE ESPINO MD Ot Z36.89 ENCOUNTER FOR OTHER SPECIFIED 10/02/2018 YOLANDE ESPINO MD, Ot Z3A.17 17 WEEKS GESTATION OF 12/09/2018 YOLANDE ESPINO MD, Ot Z34.01 ENCNTR FOR SUPRVSN OF NORMAL FIRST PREG, 12/09/2018 YOLANDE ESPINO MD, Ot Z3A.09 9 WEEKS GESTATION OF 12/09/2018 YOLANDE ESPINO MD, Ot Z36.89 ENCOUNTER FOR OTHER SPECIFIED 12/09/2018 YOLANDE ESPINO MD, Ot Z3A.18 18 WEEKS GESTATION OF 12/09/2018 YOLANDE ESPINO MD, Ot Z34.92 ENCNTR FOR SUPRVSN OF NORMAL PREG, UNSP, 12/09/2018 YOLANDE ESPINO MD, Ot Z3A.22 22 WEEKS GESTATION OF 12/09/2018 YOLANDE ESPINO MD, Ot Z36.89 ENCOUNTER FOR OTHER SPECIFIED 12/09/2018 YOLANDE ESPINO MD, Ot Z3A.17 17 WEEKS GESTATION OF 12/23/2018 YOLANDE ESPINO MD, Ot Z36.89 ENCOUNTER FOR OTHER SPECIFIED 12/23/2018 YOLANDE ESPINO MD, Ot Z3A.17 17 WEEKS GESTATION OF 12/31/2018 YOLANDE ESPINO MD, Ot Z34.01 ENCNTR FOR SUPRVSN OF NORMAL FIRST PREG, 12/31/2018 YOLANDE ESPINO MD, Ot Z3A.09 9 WEEKS GESTATION OF 12/31/2018 YOLANDE ESPINO MD, Ot Z36.89 ENCOUNTER FOR OTHER SPECIFIED 12/31/2018 YOLANDE ESPINO MD, Ot Z3A.18 18 WEEKS GESTATION OF 12/31/2018 YOLANDE ESPINO MD, Ot Z34.92 ENCNTR FOR SUPRVSN OF NORMAL PREG, UNSP, 12/31/2018 YOLANDE ESPINO MD, Ot Z3A.22 22 WEEKS GESTATION OF 12/31/2018 YOLANDE ESPINO MD, Ot Z36.89 ENCOUNTER FOR OTHER SPECIFIED 12/31/2018 YOLANDE ESPINO MD, Ot ZAlejandro.17 17 WEEKS GESTATION OF Procedures Code Description [place] [address] VISUAL ACUITY SCREEN 03/17/2013 [id number] DIVISION OF FEMALE PERINEUM, EXTERNAL AP 02/14/2018 [id number] DELIVERY OF PRODUCTS OF CONCEPTION, EXTE 02/14/2018 Results Test Result Range Complete blood count (CBC) with automated white blood cell (WBC) differential - 02/13/18 19:25 Blood leukocytes automated count (number/volume) 8.1 10*3/uL 4.3-11.0 Blood erythrocytes automated count (number/volume) 3.69 10*6/uL 4.35-5.85 Venous blood hemoglobin measurement (mass/volume) 11.1 g/dL 11.5-16.0 Blood hematocrit (volume fraction) 32 % 35-52 Automated erythrocyte mean corpuscular volume 88 [foz_us] 80-99 Automated erythrocyte mean corpuscular hemoglobin (mass per erythrocyte) 30 pg 25-34 Automated erythrocyte mean corpuscular hemoglobin concentration measurement (mass/volume) 34 g/dL 32-36 Automated erythrocyte distribution width ratio 13.0 % 10.0- 14.5 Automated blood platelet count (count/volume) 215 10*3/uL 130-400 Automated blood platelet mean volume measurement 12.0 [foz_us] 7.4-10.4 Automated blood neutrophils/100 leukocytes 77 % 42-75 Automated blood lymphocytes/100 leukocytes 17 % 12-44 Blood monocytes/100 leukocytes 6 % 0-12 Automated blood eosinophils/100 leukocytes 1 % 0-10 Automated blood basophils/100 leukocytes 0 % 0-10 Blood neutrophils automated count (number/volume) 6.2 10*3 1.8-7.8 Blood lymphocytes automated count (number/volume) 1.4 10*3 1.0-4.0 Blood monocytes automated count (number/volume) 0.5 10*3 0.0- 1.0 Automated eosinophil count 0.0 10*3/uL 0.0-0.3 Automated blood basophil count (count/volume) 0.0 10*3/uL 0.0-0.1 Blood type T Indirect antibody screen panel - 02/13/18 19:25 ABO+Rh group OP NRG Transfusion band number [id number] NRG Blood group antibody screen NEGATIVE NRG Complete urinalysis with reflex to culture - 02/13/18 20:00 Urine color determination YELLOW NRG Urine clarity determination SLIGHTLY CLOUDY NRG Urine pH measurement by test strip 7 5-9 Specific gravity of urine by test strip 1.015 1.016-1.022 Urine protein assay by test strip, semi-quantitative 2+ NEGATIVE Urine glucose detection by automated test strip NEGATIVE NEGATIVE Erythrocytes detection in urine sediment by light microscopy NEGATIVE NEGATIVE Urine ketones detection by automated test strip NEGATIVE NEGATIVE Urine nitrite detection by test strip NEGATIVE NEGATIVE Urine total bilirubin detection by test strip NEGATIVE NEGATIVE Urine urobilinogen measurement by automated test strip (mass/volume) NORMAL NORMAL Urine leukocyte esterase detection by dipstick 1+ NEGATIVE Automated urine sediment erythrocyte count by microscopy (number/high power field) NONE NRG Automated urine sediment leukocyte count by microscopy (number/high power field) [HPF] NRG Bacteria detection in urine sediment by light microscopy NONE NRG Squamous epithelial cells detection in urine sediment by light microscopy 2-5 NRG Crystals detection in urine sediment by light microscopy PRESENT NRG Casts detection in urine sediment by light microscopy NONE NRG Mucus detection in urine sediment by light microscopy NEGATIVE NRG Complete urinalysis with reflex to culture NO NRG Amorphous sediment detection in urine sediment by light microscopy MOD EUGENE PHOSPHATE NRG Complete blood count (CBC) with automated white blood cell (WBC) differential - 02/15/18 06:37 Blood leukocytes automated count (number/volume) 10.0 10*3/uL 4.3-11.0 Blood erythrocytes automated count (number/volume) 2.95 10*6/uL 4.35-5.85 Venous blood hemoglobin measurement (mass/volume) 8.7 g/dL 11.5-16.0 Blood hematocrit (volume fraction) 26 % 35-52 Automated erythrocyte mean corpuscular volume 90 [foz_us] 80-99 Automated erythrocyte mean corpuscular hemoglobin (mass per erythrocyte) 29 pg 25-34 Automated erythrocyte mean corpuscular hemoglobin concentration measurement (mass/volume) 33 g/dL 32-36 Automated erythrocyte distribution width ratio 13.1 % 10.0- 14.5 Automated blood platelet count (count/volume) 178 10*3/uL 130-400 Automated blood platelet mean volume measurement 11.8 [foz_us] 7.4-10.4 Automated blood neutrophils/100 leukocytes 71 % 42-75 Automated blood lymphocytes/100 leukocytes 19 % 12-44 Blood monocytes/100 leukocytes 9 % 0-12 Automated blood eosinophils/100 leukocytes 1 % 0-10 Automated blood basophils/100 leukocytes 0 % 0-10 Blood neutrophils automated count (number/volume) 7.1 10*3 1.8-7.8 Blood lymphocytes automated count (number/volume) 1.9 10*3 1.0-4.0 Blood monocytes automated count (number/volume) 0.9 10*3 0.0- 1.0 Automated eosinophil count 0.1 10*3/uL 0.0-0.3 Automated blood basophil count (count/volume) 0.0 10*3/uL 0.0-0.1 Encounters ACCT No. Visit Date/Time Discharge Status Pt. Type Provider Facility Loc./Unit Complaint [id number] 11/12/2013 13:42:00 11/12/2013 23:59:59 CLS Outpatient ANIYAHMOREDaphne EVA GRIMALDO [id number] 04/21/2008 18:26:00 04/21/2008 23:59:59 CLS Outpatient [id number] 03/17/2013 09:17:00 Document Registration [id number] 08/21/2012 17:09:11 RECURRING [id number] 12/31/2018 10:30:00 12/31/2018 23:59:59 CLS Outpatient YOLANDE ESPINO MD [facility] RAD FOLLOW UP SPINE [id number] 10/02/2018 11:46:00 10/02/2018 23:59:59 CLS Outpatient YOLANDE ESPINO MD [facility] RAD DATING [id number] 02/13/2018 19:09:00 02/16/2018 12:25:00 DIS Inpatient YOLANDE ESPINO MD [facility] LDRP INDUCTION [id number] 10/09/2017 13:06:00 10/09/2017 23:59:59 CLS Outpatient YOLANDE ESPINO MD [facility] RAD Z34.92 SECOND TRIMESTER [id number] 09/11/2017 10:48:00 09/11/2017 23:59:59 CLS Outpatient YOLANDE ESPINO MD [facility] RAD Z34.00 [id number] 07/12/2017 13:15:00 07/12/2017 23:59:59 CLS Outpatient YOLANDE ESPINO MD [facility] RAD Z34.00 NORMAL ,FIRST [id number] 05/27/2015 08:48:00 05/27/2015 23:59:59 CLS Outpatient DAWSON OKEEFE [facility] [id number] 02/28/2019 06:00:00 TRISTAN ESPINO MD, YOLANDE ALCALA
[2019-02-28] MEDS ORDERED: ONDANSETRON 4 MG/2 ML (SDV) Z0FRAN IV PRN (12:00)
[2019-02-28] MEDS ORDERED: EPIDURAL (SUFENTA 0.6MCG/ML BUPIVA 0.125%) 100 ML BAG EPI PRN (12:00)
[2019-02-28] MEDS ORDERED: NALOXONE 0.4 MG/ML 1 ML (NARCAN) VIAL IV PRN (12:00)
[2019-02-28] MEDS ORDERED: CATHETER FLUSH 10 ML SYR IV SCH ×2 (14:00→22:00)
[2019-02-28] MEDS ORDERED: MEPIVACAINE (CARBOCAINE) 2% 50 ML VIAL ONE (14:15)
[2019-02-28] MEDS ORDERED: MEASLES,MUMPS,RUBELLA 1 EA INJ SQ ONE (15:00)
[2019-02-28] MEDS ORDERED: BENZOCAINE/MENTHOL (DERMOPLAST) 56 ML CAN TP PRN (15:00)
[2019-02-28] MEDS ORDERED: TETANUS,DIPTH,PERTUSS P/F (BOOSTRIX) 0.5 ML VIAL IM ONE (15:00)
[2019-02-28] MEDS ORDERED: WITCH HAZEL(TUCKS) 40 EA JAR TOP PRN (15:00)
--- NOTE | 2019-02-28 15:00 | OB Labor & Delivery Record ---
L&D History Date of Service Date of Service: Feb 28, 2019 History Expected Date of Delivery: Mar 07, 2019 Gestational Age in Weeks: 39 Hx : 2 Hx Para: 1 Complications Events: Routine care Operative Indications (Cesarea: N/A-Vaginal Delivery Intrapartal Events: None L&D Stage1 Stage One Onset of Labor - Date: Feb 28, 2019 Onset of Labor - Time: 07:20 Monitors and Tracing Monitor Mode: Internal Heart Rate: 140 Monitor Accelerations: Uniform Monitor Decelerations: Variable Station: -1 Intermediate Variability: Average (6-10) Short Term Variability: Present Presentation: Vertex Vital Signs VS - Last 72 Hours, by Label 02/28/19 02/28/19 02/28/19 02/28/19 07:15 08:00 08:15 08:30 Temp 97.9 97.9 Pulse 85 85 86 80 Resp 20 20 20 20 B/P (MAP) 122/69 (86) 90/53 (65) 112/66 (81) 117/66 (83) 02/28/19 02/28/19 02/28/19 02/28/19 08:45 09:00 09:15 09:23 Pulse 99 97 97 97 Resp 20 20 20 20 B/P (MAP) 119/60 (79) 118/56 (76) 108/57 (74) 124/80 (95) Pulse Ox 99 O2 Delivery Room Air 02/28/19 02/28/19 02/28/19 02/28/19 09:23 09:27 09:32 09:38 Pulse 90 82 92 83 Resp 20 20 20 20 B/P (MAP) 91/54 (66) 131/76 (94) 105/62 (76) 105/62 (76) Pulse Ox 100 99 99 99 O2 Delivery Room Air Room Air Room Air Room Air 02/28/19 02/28/19 02/28/19 02/28/19 09:42 09:46 09:50 09:55 Pulse 105 79 81 76 Resp 20 20 20 20 B/P (MAP) 110/66 (81) 104/52 (69) 117/62 (80) 113/62 (79) Pulse Ox 99 99 99 100 O2 Delivery Room Air Room Air Room Air Room Air 02/28/19 02/28/19 02/28/19 02/28/19 10:00 10:15 10:20 10:30 Pulse 93 90 92 92 Resp 20 20 20 20 B/P (MAP) 119/59 (79) 91/54 (66) 91/52 (65) 90/52 (65) Pulse Ox 99 100 100 100 O2 Delivery Room Air Room Air Room Air Room Air 02/28/19 02/28/19 02/28/19 02/28/19 10:45 11:00 11:15 11:30 Pulse 74 85 85 85 Resp 20 20 20 20 B/P (MAP) 102/59 (73) 98/55 (69) 97/56 (70) 103/60 (74) Pulse Ox 99 99 99 99 O2 Delivery Room Air Room Air Room Air Room Air 02/28/19 02/28/19 02/28/19 02/28/19 11:45 12:00 12:15 12:30 Temp 98.7 Pulse 82 80 85 97 Resp 20 20 20 20 B/P (MAP) 100/57 (71) 104/59 (74) 109/65 (80) 105/62 (76) O2 Delivery Room Air Room Air Room Air Room Air Signs of Distress by FHT Signs of Distress no Rupture of Membranes Spontaneous Ruture of Membrane: No Amniotic Membrane Rupture Time: 0730 Amniotic Membrane Fluid Desc.: Clear Induction/Anesthesia Epidural Cath Placement - Time: 925 L&D Stage2 Stage Two Stage II Date: Feb 28, 2019 Stage II Time: 14:38 Monitors and Tracing Monitor Mode: Internal Heart Rate: 140 Monitor Accelerations: Uniform Monitor Decelerations: Variable Intermediate Variability: Average (6-10) Short Term Variability: Present Position: Left Occiput Anterior Presentation: Vertex Signs of Distress by FHT Signs of Distress no Cord Descript/Complications Cord Vessel Description: 3 Vessels Delivery Type Infant Delivery Method: Spontaneous Vaginal Episiotomy/Perineal Laceration Laceraction(s)/Extensions: No Condition of Delivery 1 minute Comment: 8 5 minute Comment: 9 Condition of Condition of : Living Exam: No Observed Abnormalities Resuscitation Resuscitation: N/A - Spontaneous Resp L&D Stage3 Stage Three Stage III Date: Feb 28, 2019 Stage III Time: 14:42 Pictocin Pitocin Administration mu/min: 12 Pitocin ml/hr: 12 Placenta Delivery Placenta Delivery: Spontaneous Delivery Summary Summary Estimated blood loss (mL): 200 Condition of Delivery Examined: Cervix Examined Post Hemorrhage: No Intervention Required none YOLANDE ESPINO MD Feb 28, 2019 14:59
--- NOTE | 2019-02-28 16:15 | NUR ---
ASSISTED UP TO BATHROOM WITH STANDBY ASSISTANCE. REVIEWED PERICARE. PATIENT DEMONSTRATED PROPER UNDERSTANDING OF PERICARE EDUCATION. SPONTANEOUS VOID. FFU/0 MODERATE FLOW. NO CLOTS NOTED.
[2019-02-28] MEDS: IBUPROFEN 600 MG (MOTRIN) TAB PO SCH ×2 (17:15→23:43)
[2019-02-28] MEDS: DOCUSATE SODIUM 100 MG (COLACE) CAP PO SCH (20:18)
[2019-02-28] MEDS: ACETAMINOPHEN 500 MG TAB (TYLENOL) PO SCH (20:19)
--- NOTE | 2019-02-28 20:25 | NUR ---
attempted to assist with , will take into nsy for bath.
--- NOTE | 2019-02-28 21:25 | NUR ---
Call light answered regarding choking during . to nsy at this time.
--- NOTE | 2019-02-28 21:50 | NUR ---
Pt and FOB updated on status.
--- NOTE | 2019-02-28 23:00 | NUR ---
Mother and FOB updated on plan of care of infant.
--- NOTE | 2019-02-28 23:45 | NUR ---
Pump taken to mother, parts explained.
--- NOTE | 2019-03-01 00:10 | NUR ---
Pt in nsy bonding with infant.
--- NOTE | 2019-03-01 00:35 | NUR ---
pt back to room at this time.
--- NOTE | 2019-03-01 02:30 | NUR ---
pt resting in bed, denies needs at this time.
[2019-03-01] MEDS: ACETAMINOPHEN 500 MG TAB (TYLENOL) PO SCH ×4 (02:31→23:35)
--- NOTE | 2019-03-01 04:00 | NUR ---
Pt sleeping, aroused per this RN, denies needs.
[2019-03-01 04:15] VITALS: BP 112/73
[2019-03-01] MEDS: IBUPROFEN 600 MG (MOTRIN) TAB PO SCH ×4 (06:30→23:35)
--- NOTE | 2019-03-01 06:30 | NUR ---
pt sleeping, aroused per this RN, routine motrin given, fresh ice water given, denies needs.
[2019-03-01 06:42] LABS: BASOPHILS % (AUTO) 0 % (0-10); EOSINOPHILS # (AUTO) 0.1 10^3/uL (0.0-0.3); EOSINOPHILS % (AUTO) 1 % (0-10); HEMATOCRIT 31 % (35-52); HEMOGLOBIN 10.1 G/DL (11.5-16.0); LYMPHOCYTES % (AUTO) 24 % (12-44); MEAN CORPUSCULAR HEMOGLOBIN 28 PG (25-34); MEAN CORPUSCULAR HGB CONC 33 G/DL (32-36); MEAN CORPUSCULAR VOLUME 86 FL (80-99); MEAN PLATELET VOLUME 11.2 FL (7.4-10.4); MONOCYTES # (AUTO) 0.6 X 10^3 (0.0-1.0); MONOCYTES % (AUTO) 8 % (0-12); NEUTROPHILS # (AUTO) 5.7 X 10^3 (1.8-7.8); NEUTROPHILS % (AUTO) 68 % (42-75); PLATELET COUNT 173 10^3/uL (130-400); RED CELL DISTRIBUTION WIDTH 14.4 % (10.0-14.5); WHITE BLOOD COUNT 8.4 10^3/uL (4.3-11.0)
[2019-03-01 08:15] VITALS: BP 110/75
[2019-03-01] MEDS: DOCUSATE SODIUM 100 MG (COLACE) CAP PO SCH ×2 (08:23→19:51)
--- NOTE | 2019-03-01 08:23 | Progress Note ---
Subjective Date Seen by a Provider: Mar 01, 2019 Time Seen by a Provider: 08:10 Subjective/Events-last exam mother currently without any complaints. Objective Exam Vital Signs Date Time Temp Pulse Resp B/P (MAP) Pulse Ox O2 Delivery O2 Flow Rate FiO2 03/01/19 04:15 97.6 79 18 112/73 (86) 97 Room Air 02/28/19 23:45 97.3 70 18 119/81 (94) 99 Room Air 02/28/19 19:45 97.3 81 18 114/74 (87) 98 Room Air 02/28/19 16:06 97.4 67 20 108/59 (75) Room Air 02/28/19 15:50 83 20 103/55 (71) Room Air 02/28/19 15:30 113 20 105/50 (68) Room Air 02/28/19 15:15 98.7 86 20 100/61 (74) Room Air 02/28/19 15:00 90 20 101/50 (67) Room Air 02/28/19 15:00 97.4 90 20 101/50 (67) Room Air 02/28/19 14:45 99.4 113 20 110/57 (74) Room Air 02/28/19 14:30 98 20 117/60 (79) Room Air 02/28/19 14:15 98.4 96 20 110/65 (80) Room Air 02/28/19 14:00 86 20 104/51 (68) Room Air 02/28/19 13:45 85 20 101/58 (72) Room Air 02/28/19 13:30 87 20 110/62 (78) Room Air 02/28/19 13:15 88 20 111/51 (71) Room Air 02/28/19 13:00 88 20 119/73 (88) Room Air 02/28/19 12:45 74 20 107/64 (78) Room Air 02/28/19 12:30 98.7 97 20 105/62 (76) Room Air 02/28/19 12:15 85 20 109/65 (80) Room Air 02/28/19 12:00 80 20 104/59 (74) Room Air 02/28/19 11:45 82 20 100/57 (71) Room Air 02/28/19 11:30 85 20 103/60 (74) 99 Room Air 02/28/19 11:15 85 20 97/56 (70) 99 Room Air 02/28/19 11:00 85 20 98/55 (69) 99 Room Air 02/28/19 10:45 74 20 102/59 (73) 99 Room Air 02/28/19 10:30 92 20 90/52 (65) 100 Room Air 02/28/19 10:20 92 20 91/52 (65) 100 Room Air 02/28/19 10:15 90 20 91/54 (66) 100 Room Air 02/28/19 10:00 93 20 119/59 (79) 99 Room Air 02/28/19 09:55 76 20 113/62 (79) 100 Room Air 02/28/19 09:50 81 20 117/62 (80) 99 Room Air 02/28/19 09:46 79 20 104/52 (69) 99 Room Air 02/28/19 09:42 105 20 110/66 (81) 99 Room Air 02/28/19 09:38 83 20 105/62 (76) 99 Room Air 02/28/19 09:32 92 20 105/62 (76) 99 Room Air 02/28/19 09:27 82 20 131/76 (94) 99 Room Air 02/28/19 09:23 90 20 91/54 (66) 100 Room Air 02/28/19 09:23 97 20 124/80 (95) 99 Room Air 02/28/19 09:15 97 20 108/57 (74) 02/28/19 09:00 97 20 118/56 (76) 02/28/19 08:45 99 20 119/60 (79) 02/28/19 08:30 80 20 117/66 (83) I & O 03/01/19 07:00 Intake Total 1350 ml Balance 1350 ml Capillary Refill : General Appearance: No Apparent Distress HEENT: Moist Mucous Membranes Respiratory: Lungs Clear Gastrointestinal: soft (with uterus firm) Results Lab Laboratory Tests 03/01/19 06:30: White Blood Count 8.4, Red Blood Count 3.63L, Hemoglobin 10.1L, Hematocrit 31L, Mean Corpuscular Volume 86, Mean Corpuscular Hemoglobin 28, Mean Corpuscular Hemoglobin Concent 33, Red Cell Distribution Width 14.4, Platelet Count 173, Mean Platelet Volume 11.2H, Neutrophils (%) (Auto) 68, Lymphocytes (%) (Auto) 24, Monocytes (%) (Auto) 8, Eosinophils (%) (Auto) 1, Basophils (%) (Auto) 0, Neutrophils # (Auto) 5.7, Lymphocytes # (Auto) 2.0, Monocytes # (Auto) 0.6, Eosinophils # (Auto) 0.1, Basophils # (Auto) 0.0 Assessment/Plan Assessment/Plan Assess & Plan/Chief Complaint 1. Status post spontaneous vaginal delivery -Routine care orders -Home in the a.m. of March 02, 2019 Clinical Quality Measures DVT/VTE Risk/Contraindication: Risk Factor Score Per Nursin RFS Level Per Nursing on Admit: 2=Moderate YOLANDE ESPINO MD Mar 01, 2019 08:23
[2019-03-01 11:55] VITALS: BP 111/79
[2019-03-01] MEDS ORDERED: TETANUS,DIPTH,PERTUSS P/F (BOOSTRIX) 0.5 ML VIAL IM ONE (12:08)
--- NOTE | 2019-03-01 14:00 | NUR ---
REPORT FROM Bradley HORAN RN
--- NOTE | 2019-03-01 16:58 | Anesthesia-Regional Post-Op ---
Regional Patient Condition Mental Status: Alert, Oriented x3 Circulation: Same as Pre-Op Headache: Absent Sensation: Full Recovery Motor Block: Absent Post Op Complications Complications None Follow Up Care/Instructions Patient Instructions None needed. Anesthesia/Patient Condition Patient is doing well, no complaints, stable vital signs, no apparent adverse anesthesia problems. No complications reported per nursing. JAIME LAM CRNA Mar 01, 2019 16:58
[2019-03-01 18:30] VITALS: BP 123/78
--- NOTE | 2019-03-01 19:50 | NUR ---
pt sitting up in bed holding nb. assessment completed. pt requesting pads and ice water. both items provided. pt denies any further needs at this time. will continue to monitor.
[2019-03-01 23:34] VITALS: BP 119/73
[2019-03-02 05:29] VITALS: BP 114/57
[2019-03-02] MEDS: ACETAMINOPHEN 500 MG TAB (TYLENOL) PO SCH ×2 (05:29→12:36)
[2019-03-02] MEDS: IBUPROFEN 600 MG (MOTRIN) TAB PO SCH ×2 (05:29→12:35)
--- NOTE | 2019-03-02 07:48 | NUR ---
Dr. Sanchez to pt room to see pt. D/C orders rec'd.
--- NOTE | 2019-03-02 08:12 | Discharge Summary ---
Diagnosis/Chief Complaint Date of Admission Feb 28, 2019 at 06:09 Date of Discharge March 02, 2019 Discharge Date: Mar 02, 2019 Discharge Time: 10:00 Admission Diagnosis Admission Diagnosis 1. Intrauterine at term 39 weeks gestation Discharge Diagnosis 1. Intrauterine at term 39 weeks gestation Reason Hospital Visit 18-year-old 2 now term to L2 who initially presented for induction of labor at 39 weeks 0 days gestation on February 28, 2019. Patient had an uneventful care course with the EDC of March 07, 2019. Her GBS status at 36 weeks was noted to be negative Discharge Summary-OBS Procedures 1. Epidural per anesthesia 2. Spontaneous vaginal delivery Discharge Physical Examination Allergies: Coded Allergies: No Known Drug Allergies (Unverified , 02/28/19) Vitals & I&Os Vital Signs Date Time Temp Pulse Resp B/P (MAP) Pulse Ox O2 Delivery O2 Flow Rate FiO2 03/02/19 05:29 97.3 82 20 114/57 (76) Room Air 03/01/19 18:30 98 General Appearance: No Acute Distress Respiratory: Clear to Auscultation Cardiovascular: Regular Rate Abdominal: Soft (With uterus firm) Hospital Course Was the Problem List Reviewed?: Yes Upon admission she underwent amniotomy with clear fluid noted. She required low-dose Pitocin augmentation. Her hemoglobin on admission was noted to be 10.4. She ultimately went on to deliver spontaneous vaginal over intact perineum a term viable female with Apgars of 8 at 1 minute and 9 at 5 minutes. Delivery was accomplished during the early afternoon of February 28, 2019. Following delivery patient underwent routine care orders. She had no complications during the remainder of hospital stay. She was ambulatory and did not develop any chest pain or shortness of breath. There was no reported leg pain. She tolerated regular diet. Her hemoglobin in the morning of March 01 was noted be 10.1. She was felt ready for dismissal in the morning of March 02, 2019. All questions were answered and she will follow up with Dr. Espino in 6 weeks. Discharge Instructions to patient/family Please see electronic discharge instructions given to patient. Discharge Medications Reviewed and agree with Discharge Medication list on patient's Discharge Ins truction sheet Clinical Quality Measures DVT/VTE Risk/Contraindication: Risk Factor Score Per Nursin RFS Level Per Nursing on Admit: 2=Moderate YOLANDE ESPINO MD Mar 02, 2019 08:12
--- NOTE | 2019-03-02 08:15 | Discharge Inst-Women's Service ---
Discharge Inst-Women's Serv Depart Medication/Instructions Instructions May take iydw-yug-tfcrnez ibuprofen 200 mg tablets. Take 2-3 every 6 hours as needed for uterine cramps. Problems Reviewed?: Yes Consults/Follow Up Additional Follow Up: Yes (With Dr. Espino 6 weeks.) Activity Activity: Activity as Tolerated Driving Instructions: You May Drive Nothing Inside Vagina: No [place] (For 6 weeks) Diet Discharge Diet: Regular Diet Return to The Hospital For: As below Symptoms to Report to : Bleeding Excessive, Fever Over 101 Degrees F, Vaginal Discharge Foul For Any Problems or Questions: Contact Your Physician YOLANDE ESPINO MD Mar 02, 2019 08:15
[2019-03-02 09:00] VITALS: BP 117/69
[2019-03-02] MEDS: DOCUSATE SODIUM 100 MG (COLACE) CAP PO SCH (09:00)
--- NOTE | 2019-03-02 09:00 | NUR ---
Pt sleeping peacefully upon entering the room, but awakens as RN enters. Assessment and VS completed. Pt notified that D/C orders have been rec'd and pt may be dismissed whenever she is ready. Pt desires to rest a while and will notify RN when ready. No needs or concerns voiced at this time. Addendum: 03/02/19 at 0946 by STEPHANIE REYES RN pt refuses colace, states she had a loose stool last noc.
--- NOTE | 2019-03-02 13:20 | NUR ---
DISCHARGE INSTRUCTIONS EXPLAINED TO PT WITH COPY PROVIDED TO PT. PT NOTIFIED OF NEED TO SCHEDULE FOLLOW UP FOR SIX WEEKS. PT VERBALIZES UNDERSTANDING OF INSTRUCTIONS, SIGNS TO VERIFY. MOB DENIES QUESTIONS OR CONCERNS AT THIS TIME. ENCOURAGED PT TO CALL WHEN READY FOR DISMISSAL, AND RN WILL ACCOMPANY PT OFF UNIT.
--- NOTE | 2019-03-02 13:55 | NUR ---
Pt ambulates off unit accompanied by RN, mom, to private vehicle. All personal belongings taken to car by S.O. No s/s of distress noted.
== END 2019-03-02 13:55 | disposition home or self-care (01) | DRG 807 ==
LOC: LDRP 06:09
PROVIDERS: ADMIT Family Medicine; ATTEND Family Medicine
PROC: 10E0XZZ Delivery of Products of Conception, External Approach (ICD-10-PCS; principal; 2019-02-28)
PROC: 10907ZC Drainage of Amniotic Fluid, Therapeutic from Products of Conception, Via Natural or Artificial Opening (ICD-10-PCS; 2019-02-28)
DX: O80 Encounter for full-term uncomplicated delivery (principal); Z23 Encounter for immunization; Z37.0 Single live birth; Z3A.39 39 weeks gestation of pregnancy
CPT/HCPCS: 36415; 85025; 86850; 86900; 86901; 90715

== ENCOUNTER 2022-02-17 22:04 | Emergency (ER) | payer MEDICAID ==
[~2022-02-17] VITALS: Ht 157.5 cm; Wt 65.8 kg
[2022-02-17] MEDS ORDERED: birth control (23:14)
[2022-02-17] MEDS ORDERED: TETANUS,DIPTH,PERTUSS P/F (BOOSTRIX) 0.5 ML VIAL IM ONE (23:45)
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
[2022-02-18 01:18] VITALS: BP 118/67
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
== END 2022-02-18 01:19 | disposition home or self-care (01) ==
LOC: EDUNIT# 22:04 → ER 22:07
DX: S50.311A Abrasion of right elbow, initial encounter (principal); S09.90XA Unspecified injury of head, initial encounter; F17.210 Nicotine dependence, cigarettes, uncomplicated; Z23 Encounter for immunization; V49.40XA Driver injured in collision with unspecified motor vehicles in traffic accident, initial encounter; Y92.410 Unspecified street and highway as the place of occurrence of the external cause
CPT/HCPCS: 70450; 70486; 72125; 84703; 90715